=== PATIENT | male | born 1940 | race Caucasian/White ===

== ENCOUNTER 2017-03-11 18:56 | Inpatient (IN) | payer MEDICARE ==
[~2017-03-11] VITALS: Ht 182.8 cm; Wt 93.2 kg
--- NOTE | ~2017-03-11 | CON ---
[place], [place] REPORT OF CONSULTATION [id number] UNIT #: [id number] ROOM: 424 DOCTOR: KARL GALVAN MDGERARDO BIRTHDATE: [birth year] DOS: 03/15/2017 PULMONARY CONSULTATION EVALUATION AND MANAGEMENT CONSULTATION REQUESTED BY: Dr. Charity Wesley. REASON FOR CONSULTATION: Assess the patient with lactic acidosis as well as the current ongoing exacerbation of COPD. HISTORY OF PRESENT ILLNESS: An 76-year-old white male, who has been admitted to the hospital under care of Dr. Wesley on 03/11/2017. The patient reported with symptoms of having shortness of breath ongoing for about 3-4 days with gradual worsening. The symptoms were associated with cough, which has been noted productive, ongoing for several weeks, but the symptoms of the cough started after cold-like symptoms reported by the patient. The cough was noted later on, nonproductive. The patient was also complaining of symptoms of tightness in the chest and wheezing. He has been admitted to the hospital. The patient on 03/11/2017 noted with acute exacerbation of COPD and been managed for this patient with IV Solu-Medrol, bronchodilators and other treatment. The patient reported progressive reduction and resolution of the acute symptom for this patient in the last 4 days of management. The patient reported his symptoms have improved by 90% or greater since hospitalization. He has a lactic acid, which was done for the patient on admission, which has continued to be monitored for this patient and noted variable elevation with lactic acid different time. He has been given several inter-fluid boluses or other continuation of the IV fluid, but the lactic acid has never been normalized. The lactic acid on admission was recorded as 3.2 and high lactic acid more than 5. REVIEW OF SYSTEMS: CONSTITUTIONAL: Fatigue and tiredness reported and symptoms of fever or chills. EYES: Denies any burning, redness, or tenderness. EARS, NOSE, THROAT SYMPTOMS: No sore throat, hoarseness, otalgia, postnasal drainage or epistaxis. CARDIOVASCULAR: Denies angina pain, edema, or pain of the lower extremity. GASTROINTESTINAL: Denies dysphagia, nausea, vomiting, diarrhea, abdominal pain, hematemesis, melena, or hematochezia. SKIN: Denies lesions or rashes. MUSCULOSKELETAL: Acute joint pain, redness, or tenderness. SKIN: No lesions or rashes. CENTRAL NERVOUS SYSTEM: No dizziness, headache, diplopia, syncopal episode, or seizure activity. Remaining systems were reviewed with the patient, they were noted all negative. PAST MEDICAL HISTORY: Noted with history of: 1. COPD. 2. History of gout. 3. Coronary artery disease with past myocardial infarction. 4. History of stroke with complete neurologic recovery. 5. Hyperlipidemia. [place], [place] REPORT OF CONSULTATION NAME: IRINA STANLEY UNIT #: [id number] ROOM: [facility] DOCTOR: KARL GALVAN MD,[facility] BIRTHDATE: [birth year] 6. Essential hypertension. 7. Hypothyroidism. 8. History of pulmonary nodule. The details were not known by the patient. 9. History reported for congestive heart failure for this patient with possible diastolic dysfunction. SOCIAL HISTORY: The patient is and lives at home. His spouse was present in the room, has four children, 2 of the kids have . History of tobacco use was noted for this patient as about 3 packs of cigarettes per day, which was discontinued for the patient in year 1999. He had worked in construction for several years. Denies history of chronic alcohol use or dependence. Denies history of illicit drug use. FAMILY HISTORY: Father at 42 years old from gunshot wound. Mother at the age of 8080 years old, complication related to leukemia. HOME MEDICATIONS: Reported as Coreg and lisinopril. DRUG ALLERGIES: Noted for no known drug allergies. PHYSICAL EXAMINATION: GENERAL: An 76-year-old white male, who has been currently noted to be awake and alert without any acute distress. Height of 6 feet, weight of 199 pounds, BMI 27 on admission. VITAL SIGNS: Normal temperature reported for the patient throughout the hospitalization, respiratory rate ranges between 17 to 20, and heart rate of 93 to 107. The blood pressure noticed highest of 191/92 and this morning was 141/71. Pulse oxygen saturation was noted normal. Room air has 96% saturation to 98% saturation. HEENT: Examination shows head was atraumatic. Eyes nonicterus. NECK: Supple and mild to moderate obesity. Decreased posterior pharyngeal space, high tongue base crowding the soft tissue structures. LUNGS: Noted clear of any wheezing or crackles at the present time. ABDOMEN: Noted mild to moderate obesity. Bowel sounds present. CENTRAL NERVOUS SYSTEM: Nonfocal. Cranial nerves 2-12 intact. EXTREMITIES: Without any acute edema. SKIN: No lesions. MUSCULOSKELETAL: No deformities. LABORATORY DATA: CBC of 03/11 on admission, WBC count 12.5, hemoglobin of 17.4, hematocrit 52.6, platelet count of 148,000. Lactic acid 4.4 on admission. The CMP of the patient on 03/11, glucose 105, BUN and creatinine was normal. Troponin was normal. Lactic acid 4.4. CBC on 03/13 was noted WBC count 15.7, normal CBC noted after that. Blood culture on 03/12 admission, no bacterial growth reported. Final culture results were pending. BMP of 03/14, glucose 170. Remaining BMP completely normal. Review of the radiology data for the patient, pertinent to the lungs for this patient. Chest x-ray of 03/11 for this patient was noted without any acute pulmonary infiltration or other abnormalities. The chest x-ray of patient shows basilar areas of atelectasis with COPD and hyperinflation changes. [place], [place] REPORT OF CONSULTATION NAME: IRINA STANLEY UNIT #: [id number] ROOM: 424 DOCTOR[facility] BIR[facility]: [birth year] IMPRESSION: 1. The patient who has been currently admitted to the hospital, has responded very well to the acute exacerbation of chronic obstructive pulmonary disease with acute bronchitis management. 2. Basilar area of atelectasis, most likely secondary to mucus impaction. 3. Lactic acidosis. The patient has been noted variably elevated. The patient most likely related to the use of the bronchodilator for this patient given every 4 hours. The patient for the medical and COPD has been reported in the literature as there has not been any drugs noted. The patient with liver dysfunction or sepsis, which has been explaining the lactic acidosis. The patient noted completely asymptomatic, not showing any signs and symptoms related to the type A or type B lactic acidosis. 4. Chronic obesity. 5. Evidence of polycythemia noted on admission, suggestive of possibility of chronic hypoxia either resulting from the chronic obstructive pulmonary disease for this patient or nocturnal hypoxia, resulting for diagnosis of obstructive sleep apnea disorder should be considered as well. PLAN OF MANAGEMENT: I will discontinue doing further lactic acid assessment at this time. Discontinuation of the short acting bronchodilators frequently administered in the form of the nebulizer. If necessary, the patient could be discharged home from the pulmonary standpoint. The patient would be encouraged about office followup for further assessment and possibility of obstructive sleep apnea disorder as well. The patient would be encouraged about continued abstinence from the tobacco use. Usual care, supportive therapy, plan of management. The case was discussed with the medical assistant prn, Dr. Mendez, who is working with Dr. Charity Wesley about that. Agree with the discharge planning, a tapering dose of prednisone. Use of the bronchodilator could be used in the form of the MDI for this patient such as albuterol sulfate for the patient p.r.n. use rather than use of any nebulized medication tapering dose of prednisone could be also completed. The patient has not been noted on any long-term management of COPD medication, should be considered about use of long-term medical management of the COPD with medication such as anticholinergic agents or others. Again, the severity of the COPD was unknown. Basilar area of atelectasis should resolve for the patient with symptomatic management with use of expectorants. Thanks for allowing me to participate in the care of this patient. [place], [place] REPORT OF CONSULTATION NAME: IRINA STANLEY UNIT #: [id number] ROOM: 424 DOCTOR: GERARDO CHONG MD BIRTHDATE: [birth year] GERARDO BARAJAS MD CM:CONSTR:REPORT OF CONSULTATION 1321 03/15/17 1652 interface
[~2017-03-11 18:56] MED LIST: ALLOPURINOL300 MG PO; ASPIRIN EC325 MG PO; COREG6.25 MG PO; CYCLOBENZAPRINE10 MG PO; LEVAQUIN500 M2 PO; MEVACOR20 MG PO; NITROGLYCERIN0.4 MG SL; NORCO 10-325 T1 EACH PO; NORCO 5-325 TA1 EACH PO; PEPCID20 MG PO; PREDNICOT10 MG PO; SYNTHROID,LEV100 MCG PO; TYLENOL EXTRA500 M2 PO; VIBRAMYCIN100 MG PO; ZESTRIL,PRINIVIL5 MG PO
[2017-03-11 19:06] VITALS: BP 168/70
--- NOTE | 2017-03-11 19:32 | NUR ---
PT C/O SHARP RIGHT BACK PAIN BELOW SHOULDER BLADE RATED 9/10 INTERMITTENT AND NONRADIATING. ARLETH DIETRICH NOTIFIED.
[2017-03-11 19:53] LABS: BASO % 0.3 % (0.0-1.0); EOS # 0.1 10*3/uL (0.0-0.4); EOS % 0.5 % (1.0-4.0); HEMATOCRIT 52.6 % (42.0-52.0); HEMOGLOBIN 17.4 g/dl (14.0-18.0); LYMPH # 1.3 10*3/uL (1.3-4.4); LYMPH % 10.8 % (27.0-41.0); MEAN CORPUSCULAR HGB 29.4 pg (27.0-31.0); MEAN CORPUSCULAR HGB CONC 33.1 g/dl (33.0-37.0); MEAN PLATELET VOLUME 8.7 fl (9.6-12.3); MONO # 0.8 10*3/uL (0.1-1.0); MONO % 6.2 % (3.0-9.0); NEUT # 10.1 10*3/uL (2.3-7.9); NEUT % 81.9 % (47.0-73.0); PLATELET COUNT AUTOMATED 148 10*3/uL (130-400); RED BLOOD COUNT 5.91 10*6/uL (4.50-5.90); RED CELL DISTRI WIDTH 13.2 % (0-14.5); WHITE BLOOD COUNT 12.4 10*3/uL (4.8-10.8)
[2017-03-11 20:04] LABS: ACT PARTIAL THROMBO TIME 27.1 SECONDS (20.8-31.5)
--- NOTE | 2017-03-11 20:07 | NUR ---
CRITICAL LAB REPORTED TO ARLETH DIETRICH NP.
[2017-03-11 20:10] LABS: ALBUMIN 3.6 gm/dl (3.1-4.5); ALKALINE PHOSPHATASE 66 U/L (45-117); BUN 9 mg/dl (7-24); CHLORIDE 100 mmol/L (98-107); CREATININE 1.15 mg/dL (0.70-1.30); LIPASE 83 U/L (73-393); POTASSIUM 4.3 mmol/L (3.5-5.1); SGOT/AST 17 IU/L (3-35); SGPT/ALT 25 U/L (12-78); SODIUM 137 mmol/L (136-145); TOTAL PROTEIN 7.3 gm/dL (6.4-8.2)
[2017-03-11 20:12] LABS: TROPONIN I < 0.015 ng/ml (<0.045)
--- NOTE | 2017-03-11 20:15 | NUR ---
ATTEMPTED TO GIVE NURSE TO NURSE REPORT. NURSE AT [facility] UNAVAILABLE AT THIS TIME. GAVE NUMBER TO CALL BACK.
--- NOTE | 2017-03-11 20:19 | NUR ---
PT STATES HE IS NOT FEELING SOB AFTER RECIEVING STEROID. NO DISTRESS NOTED. RESPIRATIONS EASY AND NONLABORED.
[2017-03-11 20:29] VITALS: BP 125/76
[2017-03-11 21:19] VITALS: BP 154/77
[2017-03-11 21:49] LABS: BILIRUBIN NEGATIVE (NEGATIVE); BLOOD NEGATIVE (NEGATIVE); CLARITY CLEAR (CLEAR); COLOR YELLOW (YELLOW); GLUCOSE NEGATIVE (NEGATIVE); KETONE TRACE (NEGATIVE); LEUKO ESTERASE NEGATIVE (NEGATIVE); NITRITE NEGATIVE (NEGATIVE)
[2017-03-11 21:59] LABS: BACTERIA TRACE; RBC 0-2 rbc/hpf (0-2); WBC 0-2 wbc/hpf (0-5)
[2017-03-11 23:45] VITALS: BP 136/77
[2017-03-12 00:10] VITALS: BP 140/81
--- NOTE | 2017-03-12 00:10 | NUR ---
A 76, admitted to 4E, under the services of ISAIAH Arriaza MD with a diagnosis of COPD. Chief complaint is SOB. Patient arrived via bed from ER. Monitor applied. Initial assessment completed. Vital signs taken and recorded. ISAIAH ARRIAZA MD notified of admission to the unit. Orders received. See assessment for past medical history, medications and allergies. Patient and/or family oriented to unit. visitation policy reviewed. Clothing/patient valuable form completed. MARSHA COLBERT
--- NOTE | 2017-03-12 00:28 | NUR ---
MED REC UP TO DATE PER PATIENT.
--- NOTE | 2017-03-12 00:45 | NUR ---
NOTIFIED OF PTS. CRITICAL HIGH LACTIC ACID 3.6 AT THIS TIME, ATTEMPTED TO CALL AND NOTIFY DR. BECK AT THIS TIME. NO ANSWER, WILL WAIT 1 MINUTE AND ATTEMPT TO CALL HIS HOME PHONE PER THE [employer].
--- NOTE | 2017-03-12 00:48 | NUR ---
ATTEMPTED TO CALL DR. BECK'S HOME PHONE AT THIS TIME. HOME PHONE BUSY AT THIS TIME. WILL ATTEMPT TO RECALL CELL.
--- NOTE | 2017-03-12 01:00 | NUR ---
ATTEMPTED TO CALL DR. BECK'S HOME AND CELL AT THIS TIME AGAIN. NO ANSWER AT THIS TIME.
--- NOTE | 2017-03-12 01:10 | NUR ---
SPOKE WITH DR. MCFARLAND AT THIS TIME REGARDING PTS. STATUS AND CRITICAL LAB VALUE. ORDERS RECEIVED AT THIS TIME.
--- NOTE | 2017-03-12 07:26 | NUR ---
24 HR chart check completed.
[2017-03-12 08:00] VITALS: BP 137/76
--- NOTE | 2017-03-12 08:30 | NUR ---
Licensing Representative in to talk to patient. Patient states lives at HOME with HIS . There are 4 OUTSIDE STEPS steps in the home. Physician: DR BECK [facility] Patient's level of ADLs: INDEPENDENT Patient has working utilities: YES DME: NONE Follow-up physician's appointment after d/c: PREFERS TO MAKE HIS OWN APPT Does patient want to access PORTAL?: Discharge plan HOME. NOAH CARIAS
[2017-03-12 12:00] VITALS: BP 108/52
[2017-03-12 16:00] VITALS: BP 109/65
--- NOTE | 2017-03-12 19:50 | NUR ---
PT. AWAKE, ALERT AND ORIENTED X 3 AT THIS TIME. PT. IN BED AT THIS TIME WITH BREATHING TREATMENT ACTIVE. PT. DENIES SOB, CP, NVD AT THIS TIME. CALL LIGHT WITHIN REACH, BED IN LOWEST POSITION, WHEELS LOCKED. SEE SHIFT ASSESSMENT.
[2017-03-12 20:00] VITALS: BP 126/46
[2017-03-12 22:03] LABS: BILIRUBIN NEGATIVE (NEGATIVE); BLOOD NEGATIVE (NEGATIVE); CLARITY CLEAR (CLEAR); COLOR YELLOW (YELLOW); GLUCOSE NEGATIVE (NEGATIVE); KETONE 1+ (NEGATIVE); LEUKO ESTERASE NEGATIVE (NEGATIVE); NITRITE NEGATIVE (NEGATIVE); PH 5.5 (5.0-9.0); UROBILINOGEN 0.2 E.U./dl (0.2-1.0)
[2017-03-12 22:10] LABS: EPITHELIAL CELLS 0-2; WBC 0-2 wbc/hpf (0-5)
[2017-03-12 22:11] LABS: BACTERIA 1+
[2017-03-13] VITALS: BP 144/71
[2017-03-13 07:23] LABS: BASO % 0.1 % (0.0-1.0); LYMPH % 6.6 % (27.0-41.0); MEAN CORPUSCULAR HGB 29.1 pg (27.0-31.0); MEAN CORPUSCULAR HGB CONC 33.1 g/dl (33.0-37.0); MEAN PLATELET VOLUME 9.1 fl (9.6-12.3); MONO # 0.6 10*3/uL (0.1-1.0); MONO % 3.6 % (3.0-9.0); NEUT # 13.9 10*3/uL (2.3-7.9); NEUT % 88.8 % (47.0-73.0); PLATELET COUNT AUTOMATED 170 10*3/uL (130-400); RED BLOOD COUNT 5.25 10*6/uL (4.50-5.90); RED CELL DISTRI WIDTH 13.2 % (0-14.5); WHITE BLOOD COUNT 15.7 10*3/uL (4.8-10.8)
[2017-03-13 07:27] LABS: HEMATOCRIT 46.2 % (42.0-52.0); HEMOGLOBIN 15.3 g/dl (14.0-18.0)
[2017-03-13 08:00] VITALS: BP 128/65
[2017-03-13 08:12] LABS: CHLORIDE 98 mmol/L (98-107); POTASSIUM 4.3 mmol/L (3.5-5.1); SODIUM 136 mmol/L (136-145)
[2017-03-13 08:25] LABS: ALBUMIN 3.2 gm/dl (3.1-4.5); ALKALINE PHOSPHATASE 50 U/L (45-117); CHOLESTEROL 221 mg/dL (<200); CREATININE 1.16 mg/dL (0.70-1.30); HDL CHOLESTEROL 61 mg/dl (40-60); LDL CHOLESTEROL 139 mg/dL (9-159); PHOSPHOROUS 2.7 mg/dL (2.5-4.9); SGOT/AST 11 IU/L (3-35); SGPT/ALT 25 U/L (12-78); TOTAL PROTEIN 6.8 gm/dL (6.4-8.2); TRIGLYCERIDES 104 mg/dl (<150); VLDL CHOLESTEROL 21 mg/dL (6-40)
[2017-03-13 08:30] LABS: BUN 19 mg/dl (7-24)
[2017-03-13 09:57] LABS: VITAMIN D, 25-HYDROXY 9.1 ng/mL (30-100)
[2017-03-13 12:00] VITALS: BP 125/62
--- NOTE | 2017-03-13 12:28 | NUR ---
DR NÚÑEZ CALLED WITH A CRITICAL LACTIC ACID OF 3.7.
[2017-03-13 14:35] LABS: BASO % 0.1 % (0.0-1.0); HEMATOCRIT 46.1 % (42.0-52.0); HEMOGLOBIN 15.3 g/dl (14.0-18.0); LYMPH # 1.3 10*3/uL (1.3-4.4); LYMPH % 8.5 % (27.0-41.0); MEAN CORPUSCULAR HGB 29.5 pg (27.0-31.0); MEAN CORPUSCULAR HGB CONC 33.2 g/dl (33.0-37.0); MEAN PLATELET VOLUME 8.9 fl (9.6-12.3); MONO % 6.8 % (3.0-9.0); NEUT # 12.2 10*3/uL (2.3-7.9); NEUT % 83.6 % (47.0-73.0); PLATELET COUNT AUTOMATED 177 10*3/uL (130-400); RED BLOOD COUNT 5.18 10*6/uL (4.50-5.90); RED CELL DISTRI WIDTH 13.2 % (0-14.5); WHITE BLOOD COUNT 14.6 10*3/uL (4.8-10.8)
--- NOTE | 2017-03-13 14:45 | NUR ---
DR NÚÑEZ CALLED WITH CRITICAL LACTIC ACID OF 4.8.
[2017-03-13 16:00] VITALS: BP 131/68
--- NOTE | 2017-03-13 16:00 | NUR ---
DR NÚÑEZ CALLED WITH CRITICAL LACTIC ACID OF 3.7.
--- NOTE | 2017-03-13 17:17 | NUR ---
DR NÚÑEZ CALLED WITH CRITICAL LACTIC ACID OF 2.8.
--- NOTE | 2017-03-13 18:15 | NUR ---
CRITICAL LACTIC ACID OF 4.6.
--- NOTE | 2017-03-13 18:30 | NUR ---
IV TO LEFT AC INFILTRATED, DC'ED. NEW IV PLACED TO RIGHT FOREARM.
[2017-03-13 20:00] VITALS: BP 145/77
--- NOTE | 2017-03-13 20:00 | NUR ---
PT. AWAKE, ALERT AND ORIENTED X 3 AT THIS TIME. PT. DENIES CP, SOB, AND PAIN AT THIS TIME. CALL LIGHT WITHIN REACH, BED IN LOWEST POSITION, WHEELS LOCKED. SEE SHIFT ASSESSMENT.
--- NOTE | 2017-03-13 20:01 | NUR ---
NOTIFIED DR. ORTIZ OF PTS. CRITICAL LACTIC AT THIS TIME. NO NEW ORDERS AT THIS TIME.
--- NOTE | 2017-03-13 20:35 | NUR ---
NOTIFIED DR. ORTIZ OF PTS. CRITICAL LACTIC ACID AT THIS TIME. AWAITING PHYSICIAN ORDERS.
[2017-03-14] VITALS: BP 125/52
--- NOTE | 2017-03-14 00:07 | NUR ---
NOTIFIED DR. ORTIZ OF PTS. CRITICAL LACTIC ACID OF 3.8 AT THIS TIME. NO NEW ORDERS AT THIS TIME.
--- NOTE | 2017-03-14 02:19 | NUR ---
NOTIFIED DR. ORTIZ OF PTS. LACTIC ACID OF 3.2. NO NEW ORDERS AT THIS TIME.
[2017-03-14 04:03] VITALS: BP 122/58
[2017-03-14 04:24] LABS: BASO % 0.1 % (0.0-1.0); HEMATOCRIT 44.1 % (42.0-52.0); HEMOGLOBIN 14.6 g/dl (14.0-18.0); LYMPH # 0.9 10*3/uL (1.3-4.4); LYMPH % 7.9 % (27.0-41.0); MEAN CELL VOLUME 89.5 fl (80.0-94.0); MEAN CORPUSCULAR HGB 29.6 pg (27.0-31.0); MEAN CORPUSCULAR HGB CONC 33.1 g/dl (33.0-37.0); MEAN PLATELET VOLUME 9.5 fl (9.6-12.3); MONO # 0.3 10*3/uL (0.1-1.0); MONO % 2.7 % (3.0-9.0); NEUT # 10.3 10*3/uL (2.3-7.9); NEUT % 88.7 % (47.0-73.0); PLATELET COUNT AUTOMATED 165 10*3/uL (130-400); RED BLOOD COUNT 4.93 10*6/uL (4.50-5.90); RED CELL DISTRI WIDTH 13.3 % (0-14.5); WHITE BLOOD COUNT 11.6 10*3/uL (4.8-10.8)
--- NOTE | 2017-03-14 04:28 | NUR ---
NOTIFIED DR. ORTIZ OF PTS. CRITICAL LACTIC ACID AT THIS TIME. NO NEW ORDERS AT THIS TIME.
[2017-03-14 04:38] LABS: BUN 19 mg/dl (7-24); CHLORIDE 104 mmol/L (98-107); CREATININE 1.16 mg/dL (0.70-1.30); POTASSIUM 4.3 mmol/L (3.5-5.1); SODIUM 139 mmol/L (136-145)
[2017-03-14 08:00] VITALS: BP 157/89
--- NOTE | 2017-03-14 09:10 | NUR ---
PRN DULCOLAX GIVEN FOR CONSTIPATION. PT REPORTS HE OFTEN GOES 4-5 DAYS WITHOUT A STOOL.
[2017-03-14 12:00] VITALS: BP 123/71
--- NOTE | 2017-03-14 12:00 | NUR ---
CONSULT CALLED TO DR BARAJAS.
--- NOTE | 2017-03-14 12:00 | NUR ---
DR NÚÑEZ NOTIFIED THAT PT REFUSED TO HAVE ABG'S DRAWN.
--- NOTE | 2017-03-14 12:23 | NUR ---
DR BARAJAS CALLED UNIT, NOTIFIED OF CONSULT AND REFUSAL OF ABG.
--- NOTE | 2017-03-14 14:53 | NUR ---
NOTIFIED DR. NÚÑEZ OF CRITICAL LACTIC ACID OF 4.2. NOTIFIED HER THAT THE LAB STATED THAT RESULT WILL AUTOMATICALLY REFLUX FOR TWO MORE DRAWS. DR. NÚÑEZ WANTS TO MAKE SURE THAT THERE ARE 3 LACTIC ACIDS DRAWN AFTER THE ONE JUST CALLED TO HER.
[2017-03-14 16:00] VITALS: BP 153/96
--- NOTE | 2017-03-14 17:05 | NUR ---
MADE DR. NÚÑEZ AWARE OF CRITICAL LACTIC ACID OF 4.4. NO NEW ORDERS AT THIS TIME. AWARE LACTIC ACID X2 MORE TIMES ARE ORDERED. PATIENTS NURSE NONI AWARE OF RESULT WELL.
--- NOTE | 2017-03-14 19:08 | NUR ---
PATIENT HAS HAD CRITICAL LACTIC ACID RESULTS ALL DAY.07:22 =3.9, 09:20 =3.8, 11:30= 3.8, 14:34=4.2, 16:48= 4.4. DR NÚÑEZ CALLED WITH EACH CRITICAL LAB.
--- NOTE | 2017-03-14 19:14 | NUR ---
DR SEWELL CALLED TO REPORT CRITICAL LACTIC ACID OF 6.3.
--- NOTE | 2017-03-14 19:30 | NUR ---
DR. SEWELL NOTIFIED OF L.A RESULT OF 3.[address]CERNS FROM THE DR AT THIS TIME.
[2017-03-14 20:00] VITALS: BP 175/76
--- NOTE | 2017-03-14 23:34 | NUR ---
DR SEWELL CALLED AND NOTIFIED OF L.A OF 3.6. NO CONCERNS FROM THE DR AT THIS TIME.
[2017-03-15] VITALS: BP 178/82
--- NOTE | 2017-03-15 02:39 | NUR ---
PATIENT L.A 3.7. DR. SEWELL NOTIFIED.
--- NOTE | 2017-03-15 05:41 | NUR ---
CRITICAL LAB LA AT 4.1 DR. SEWELL NOTIFIED.
--- NOTE | 2017-03-15 07:56 | NUR ---
CRITICAL LACTIC ACID LAB CALLED ON PT, DR. NÚÑEZ NOTIFIED, NO NEW ORDERS AT THIS TIME.
[2017-03-15 08:00] VITALS: BP 191/92
--- NOTE | 2017-03-15 08:00 | NUR ---
IN TO SEE PT, ASSESSMENT COMPLETE, PT ALERT ORIENTED AND PLEASANT. NO S/S OF DISTRESS AT THIS TIME. RESPIRATIONS EASY AND UNLABORED. ALL NEEDS CURRENTLY MET, AM MEDICATIOSN TAKEN WITH EASE. IV SITE PATENT, DRESSING DRY AND IN TACT. FLUIDS RUNNING PER ORDER. ENCOURAGED USE OF CALL LIGHT.
[2017-03-15 09:41] VITALS: BP 140/68
--- NOTE | 2017-03-15 10:17 | NUR ---
CRITICAL LAB REPORTED ON PT, DR. NÚÑEZ NOTIFIED, NO NEW ORDERS AT THIS TIME.
[2017-03-15 12:00] VITALS: BP 141/71
[2017-03-15] MEDS ORDERED: VITAMIN D50000 UNIT PO (13:03)
[2017-03-15] MEDS ORDERED: B12,B-12,B 12500 MC1 PO (13:03)
[2017-03-15] MEDS ORDERED: DOXYCYCLINE100 M3 PO (13:04)
[2017-03-15] MEDS ORDERED: PREDNISONE10 MG PO (13:04)
--- NOTE | 2017-03-15 14:16 | NUR ---
Discharge instructions reviewed with patient/family. Patient receptive and verbalizes understanding. Follow-up care arranged. Written instructions given to patient/family. RICK JANG
== END 2017-03-15 14:16 | disposition home or self-care (01) | DRG 871 ==
LOC: ED 18:56 → EDHOLD 23:38 → 4E 23:38
PROVIDERS: Hospitalist; Nurse Practitioner Family; ADMIT Internal Medicine
DX: A41.9 Sepsis, unspecified organism (principal); J18.9 Pneumonia, unspecified organism; E87.2 Acidosis; I11.0 Hypertensive heart disease with heart failure; I50.9 Heart failure, unspecified; D75.1 Secondary polycythemia; J44.1 Chronic obstructive pulmonary disease with (acute) exacerbation; J44.0 Chronic obstructive pulmonary disease with (acute) lower respiratory infection; Z66 Do not resuscitate; R65.20 Severe sepsis without septic shock; G47.33 Obstructive sleep apnea (adult) (pediatric); J20.9 Acute bronchitis, unspecified; E66.9 Obesity, unspecified; R73.9 Hyperglycemia, unspecified; Z51.5 Encounter for palliative care; K21.9 Gastro-esophageal reflux disease without esophagitis; I25.10 Atherosclerotic heart disease of native coronary artery without angina pectoris; M10.9 Gout, unspecified; E78.5 Hyperlipidemia, unspecified; Z95.818 Presence of other cardiac implants and grafts; Z87.891 Personal history of nicotine dependence; Z82.3 Family history of stroke; Z83.3 Family history of diabetes mellitus; Z83.6 Family history of other diseases of the respiratory system; Z80.6 Family history of leukemia; Z79.899 Other long term (current) drug therapy; I25.2 Old myocardial infarction; Z86.73 Personal history of transient ischemic attack (TIA), and cerebral infarction without residual deficits; Z68.27 Body mass index [BMI] 27.0-27.9, adult

== ENCOUNTER 2017-05-23 08:44 | Inpatient (IN) | payer MEDICARE ==
[2017-05-23] VITALS (7 sets, daily range): BP systolic 120–182; BP diastolic 69–88
[~2017-05-23] VITALS: Ht 182.8 cm; Wt 86.2 kg
[~2017-05-23 08:44] MED LIST changes: +B12,B-12,B 12500 MC1 PO; +DOXYCYCLINE100 M3 PO; +PREDNISONE10 MG PO; +VITAMIN D50000 UNIT PO
[2017-05-23 09:19] LABS: BASO % 0.1 % (0.0-1.0); HEMATOCRIT 48.9 % (42.0-52.0); HEMOGLOBIN 16.4 g/dl (14.0-18.0); LYMPH # 1.1 10*3/uL (1.3-4.4); LYMPH % 14.2 % (27.0-41.0); MEAN CELL VOLUME 87.3 fl (80.0-94.0); MEAN CORPUSCULAR HGB 29.3 pg (27.0-31.0); MEAN CORPUSCULAR HGB CONC 33.5 g/dl (33.0-37.0); MEAN PLATELET VOLUME 8.8 fl (9.6-12.3); MONO # 0.6 10*3/uL (0.1-1.0); MONO % 7.4 % (3.0-9.0); NEUT # 5.9 10*3/uL (2.3-7.9); PLATELET COUNT AUTOMATED 155 10*3/uL (130-400); RED CELL DISTRI WIDTH 13.7 % (0-14.5); WHITE BLOOD COUNT 7.6 10*3/uL (4.8-10.8)
[2017-05-23 09:27] LABS: ACT PARTIAL THROMBO TIME 27.7 SECONDS (20.8-31.5); INTERNATIONAL NORM RATIO 0.9 (2.0-3.5)
[2017-05-23 09:34] LABS: ALBUMIN 3.2 gm/dl (3.1-4.5); ALKALINE PHOSPHATASE 47 U/L (45-117); BUN 19 mg/dl (7-24); CHLORIDE 95 mmol/L (98-107); POTASSIUM 3.9 mmol/L (3.5-5.1); SGOT/AST 13 IU/L (3-35); SGPT/ALT 16 U/L (12-78); SODIUM 136 mmol/L (136-145)
[2017-05-23 09:35] LABS: TROPONIN I < 0.015 ng/ml (<0.045)
[2017-05-23 09:36] LABS: ABG BASE EXCESS 4.7 mmol/L (-2.0-2.0); ABG HCO3 28.2 mmol/l (22-26); ABG O2 SATURATION 99.3 % (95-97); ARTERIAL BLOOD GAS PCO2 38.3 mmHg (35-45); ARTERIAL BLOOD GAS PH 7.478 (7.35-7.45)
[2017-05-23 12:34] LABS: ABG BASE EXCESS 4.1 mmol/L (-2.0-2.0); ABG HCO3 27.5 mmol/l (22-26); ABG O2 SATURATION 97.1 % (95-97); ARTERIAL BLOOD GAS PCO2 38.4 mmHg (35-45); ARTERIAL BLOOD GAS PH 7.469 (7.35-7.45); ARTERIAL BLOOD GAS PO2 85.6 mmHg (80-90)
[2017-05-23] MEDS ORDERED: ALBUTEROL2.5 MG/0.5 INH (14:12)
[2017-05-23 16:49] LABS: BILIRUBIN 1+ (NEGATIVE); BLOOD NEGATIVE (NEGATIVE); CLARITY SL CLOUDY (CLEAR); COLOR YELLOW (YELLOW); GLUCOSE NEGATIVE (NEGATIVE); KETONE 2+ (NEGATIVE); LEUKO ESTERASE NEGATIVE (NEGATIVE); NITRITE NEGATIVE (NEGATIVE); SPECIFIC GRAVITY 1.015 (1.005-1.030)
[2017-05-23 17:02] LABS: BACTERIA TRACE
[2017-05-24] VITALS: BP 115/65
[2017-05-24 04:00] VITALS: BP 153/66
[2017-05-24 05:22] LABS: HEMOGLOBIN 14.5 g/dl (14.0-18.0); LYMPH # 0.4 10*3/uL (1.3-4.4); LYMPH % 12.4 % (27.0-41.0); MEAN CELL VOLUME 87.7 fl (80.0-94.0); MEAN CORPUSCULAR HGB 29.8 pg (27.0-31.0); MEAN PLATELET VOLUME 8.8 fl (9.6-12.3); MONO # 0.2 10*3/uL (0.1-1.0); MONO % 4.6 % (3.0-9.0); NEUT # 2.9 10*3/uL (2.3-7.9); NEUT % 82.4 % (47.0-73.0); PLATELET COUNT AUTOMATED 143 10*3/uL (130-400); RED BLOOD COUNT 4.86 10*6/uL (4.50-5.90); RED CELL DISTRI WIDTH 13.2 % (0-14.5); WHITE BLOOD COUNT 3.5 10*3/uL (4.8-10.8)
[2017-05-24 05:25] LABS: HEMATOCRIT 42.6 % (42.0-52.0)
[2017-05-24 05:39] LABS: ALBUMIN 2.6 gm/dl (3.1-4.5); ALKALINE PHOSPHATASE 41 U/L (45-117); BUN 17 mg/dl (7-24); CHLORIDE 102 mmol/L (98-107); CREATININE 0.99 mg/dL (0.70-1.30); POTASSIUM 4.2 mmol/L (3.5-5.1); SGOT/AST 10 IU/L (3-35); SGPT/ALT 14 U/L (12-78); SODIUM 138 mmol/L (136-145); TOTAL PROTEIN 5.7 gm/dL (6.4-8.2)
[2017-05-24 08:00] VITALS: BP 185/84
[2017-05-24 12:00] VITALS: BP 184/77
[2017-05-24 16:00] VITALS: BP 136/68
[2017-05-24 20:00] VITALS: BP 136/50
[2017-05-25] VITALS: BP 156/81
[2017-05-25 06:43] LABS: BASO % 0.2 % (0.0-1.0); HEMATOCRIT 44.5 % (42.0-52.0); HEMOGLOBIN 14.5 g/dl (14.0-18.0); LYMPH # 0.7 10*3/uL (1.3-4.4); LYMPH % 12.6 % (27.0-41.0); MEAN CELL VOLUME 88.5 fl (80.0-94.0); MEAN CORPUSCULAR HGB 28.8 pg (27.0-31.0); MEAN CORPUSCULAR HGB CONC 32.6 g/dl (33.0-37.0); MEAN PLATELET VOLUME 8.9 fl (9.6-12.3); MONO # 0.2 10*3/uL (0.1-1.0); MONO % 3.9 % (3.0-9.0); NEUT # 4.7 10*3/uL (2.3-7.9); NEUT % 82.9 % (47.0-73.0); PLATELET COUNT AUTOMATED 161 10*3/uL (130-400); RED BLOOD COUNT 5.03 10*6/uL (4.50-5.90); WHITE BLOOD COUNT 5.7 10*3/uL (4.8-10.8)
[2017-05-25 07:18] LABS: ALBUMIN 2.7 gm/dl (3.1-4.5); ALKALINE PHOSPHATASE 42 U/L (45-117); BUN 19 mg/dl (7-24); CHLORIDE 105 mmol/L (98-107); CREATININE 1.16 mg/dL (0.70-1.30); SGOT/AST 14 IU/L (3-35); SGPT/ALT 21 U/L (12-78); SODIUM 142 mmol/L (136-145); TOTAL PROTEIN 5.8 gm/dL (6.4-8.2)
[2017-05-25 07:22] LABS: POTASSIUM 5.2 mmol/L (3.5-5.1)
[2017-05-25 08:00] VITALS: BP 156/67
[2017-05-25 12:00] VITALS: BP 154/70
[2017-05-25] MEDS ORDERED: TAMIFLU 75MG CA75 MG PO (13:30)
[2017-05-25] MEDS ORDERED: LEVOFLOXACIN500 MG PO (13:30)
== END 2017-05-25 15:02 | disposition home or self-care (01) | DRG 871 ==
LOC: ED 08:44 → 4E 09:45 → EDHOLD 09:45 → ICCU 09:45 → 4E 09:52 → ICCU 09:52 → 4E 10:10 → ICCU 12:42 → 5E 05-24 17:41
PROVIDERS: Emergency Medicine; Internal Medicine
DX: A41.9 Sepsis, unspecified organism (principal); J96.01 Acute respiratory failure with hypoxia; J44.1 Chronic obstructive pulmonary disease with (acute) exacerbation; J10.1 Influenza due to other identified influenza virus with other respiratory manifestations; I25.10 Atherosclerotic heart disease of native coronary artery without angina pectoris; I11.0 Hypertensive heart disease with heart failure; I50.9 Heart failure, unspecified; K21.9 Gastro-esophageal reflux disease without esophagitis; M10.9 Gout, unspecified; E78.5 Hyperlipidemia, unspecified; E03.9 Hypothyroidism, unspecified; G47.33 Obstructive sleep apnea (adult) (pediatric); Z87.891 Personal history of nicotine dependence; Z95.5 Presence of coronary angioplasty implant and graft; I25.2 Old myocardial infarction; Z86.73 Personal history of transient ischemic attack (TIA), and cerebral infarction without residual deficits; Z79.52 Long term (current) use of systemic steroids; Z79.899 Other long term (current) drug therapy; Z80.6 Family history of leukemia; Z83.3 Family history of diabetes mellitus; Z82.49 Family history of ischemic heart disease and other diseases of the circulatory system; Z83.6 Family history of other diseases of the respiratory system

== ENCOUNTER → 2018-01-17 | Outpatient (CLI) | payer MEDICARE ==
[~2018-01-17] MED LIST changes: +ALBUTEROL2.5 MG/0.5 INH; +LEVOFLOXACIN500 MG PO; +LEVOXYL112 MCG PO; +LOVASTATIN20 MG PO; +TAMIFLU 75MG CA75 MG PO; +VITAMIN B122500 MC1 PO
== END | disposition home or self-care (01) ==
LOC: CARD 01-16 09:30
DX: J44.1 Chronic obstructive pulmonary disease with (acute) exacerbation (principal); I10 Essential (primary) hypertension; Z87.891 Personal history of nicotine dependence

== ENCOUNTER 2018-07-23 14:19 | Inpatient (IN) | payer MEDICARE ==
[~2018-07-23] VITALS: Ht 182.8 cm; Wt 97.3 kg
--- NOTE | ~2018-07-23 | PR ---
[place], [place] PROGRESS NOTE NAME: IRINA STANLEY UNIT #: [id number] ROOM: 505 DOCTOR: SHU HERNANDEZ MD BIRTHDATE: [birth year] DOS: 07/25/2018 SUBJECTIVE: The patient was seen by Dr. Collins yesterday. The patient is comfortable, does not look to be in acute distress at this point. REVIEW OF SYSTEMS: A 6-8 systems reviewed as per HPI. OBJECTIVE: GENERAL: The patient is alert, oriented x 3. HEENT: Unremarkable. NECK: Supple. No JVD. LUNGS: Slightly tachypneic at rest and is on oxygen. Bilateral diminished air entry. CARDIOVASCULAR: Auscultation revealed distant heart sounds. No murmur. EXTREMITIES: About 2+ edema. NEUROLOGIC: Stable. LABORATORY DATA: Hemoglobin is 16.1 and hematocrit is 48.1. Electrolytes are normal. IMAGING DATA: CT of the chest revealed emphysematous changes, progression of patchy opacities in the left lower lobe, pneumonia, granulomatous process. IMPRESSION: The patient with probable pneumonia with shortness of breath and chronic obstructive pulmonary disease. RECOMMENDATIONS: Await the echo to be read by Dr. Collins. Continue the present care and we will follow up. SHU HERNANDEZ MD CM:PNTRANS [id number] SHU HERNANDEZ MD 07/25/18 0810 interface
--- NOTE | ~2018-07-23 | EKG ---
[place], [place] ELECTROCARDIOGRAM REPORT NAME: IRINA STANLEY UNIT #: [id number] ROOM: 505 DOCTOR: EPIPHANY DRAFT REPORT BIRTHDATE: [birth year] [facility] Test Date: 2018-07-23 Test Time: 15:58:46 Pat Name: IRINA STANLEY Department: Room: 505 2 Gender: M [employer] Production Manager: Ellie Terrazas : 1940 Requested By: ISAIAH BECK Order Number: [id number] Reading MD: Jazmyne Collins MD Measurements Intervals Harmony Rate: 70 P: 82 AK: 293 QRS: 55 QRSD: 151 T: 53 QT: 429 QTc: 463 Interpretive Statements Sinus rhythm Prolonged AK interval Right bundle branch block Baseline wander in lead(s) V1 No previous ECG available for comparison Electronically Signed On 07-26-2018 9:16:00 PDT by Jazmyne Collins MD CM:EKGRPT:ELECTROCARDIOGRAM REPORT [id number] ISAIAH BECK MD EPIPHANY DRAFT REPORT ISAIAH BECK MD
--- NOTE | ~2018-07-23 | CON ---
[place], [place] REPORT OF CONSULTATION NAME: [facility] [id number] UNIT #: [id number] ROOM: 505 DOCTOR: KARL GALVAN MDGERARDO BIRTHDATE: [birth year] DOS: 07/25/2018 PULMONARY CONSULTATION, EVALUATION AND MANAGEMENT REASON FOR CONSULTATION: Assess the patient with lung mass-like pulmonary nodule. HISTORY OF PRESENT ILLNESS: This is a 77-year-old white male patient, unknown to me, has been known with history of COPD and stated pulmonary nodule in the right upper lung in the past. He has been seen by Dr. Andino, his industrial engineering technologist in [place], [place]. He has been followed up with him. The patient has been admitted to the hospital. The patient was complaining of progressive increased shortness of breath ongoing for the past couple of months or more. Symptoms are also associated with some edema of the extremities. The patient denies symptoms of chest pain or hemoptysis. He has been assessed in the hospital after hospitalization on 07/23/2018, underwent ultrasound of the lower extremity, arterial Doppler of the lower extremities and CT scan of the chest completed yesterday. The patient denies symptoms of fever or chills. Denies any symptoms of hemoptysis. The cough of the patient was noted mostly nonproductive with wheezing at times. He does not use any oxygen supplementation at home and used some respiratory medications at home. REVIEW OF SYSTEMS: CONSTITUTIONAL: Fatigue and tiredness reported without any symptoms of fever or chills. EYES: Denies any burning, redness, or tenderness. EARS, NOSE, THROAT SYMPTOMS: Denies sore throat, hoarseness, otalgia, postnasal drainage or epistaxis. CARDIOVASCULAR SYSTEM: The patient noted the pain of the lower extremity with edema. Denies symptoms of anginal pain or palpitations. GASTROINTESTINAL SYMPTOMS: Denies dysphagia, nausea, vomiting, diarrhea, abdominal pain, hematemesis, melena or hematochezia. Abnormal weight loss. GENITOURINARY SYMPTOMS: No dysuria, urinary incontinence, hematuria or flank pain. MUSCULOSKELETAL: No acute joint pain, redness or tenderness. SKIN: Denies any abnormal lesions or rashes. CENTRAL NERVOUS SYSTEM: No dizziness, headache, diplopia or syncopal episodes. Remaining systems were reviewed, they were noted all negative. PAST MEDICAL HISTORY: Noted with: 1. History of hypothyroidism. 2. Essential hypertension. 3. Hyperlipidemia. 4. The patient with history of chronic obstructive pulmonary disease. 5. Intervertebral disk disease. 6. Past CVA, resolution of any focal neurologic deficit. PAST SURGICAL HISTORY: Noted: 1. Bilateral carotid endarterectomy. [place], [place] REPORT OF CONSULTATION NAME: IRINA STANLEY UNIT #: [id number] ROOM: [facility] DOCTOR: KARL GALVAN MD,GERARDO BIRTHDATE: [birth year] 2. Coronary artery bypass grafting. SOCIAL HISTORY: Stated the patient was noted tobacco use since teenager, smoked up to 3 to 4 packs of cigarettes per day, which was discontinued about the year 1999. He is , has 3 children, lives at home. FAMILY HISTORY: The patient noted noncontributory. CURRENT MEDICATIONS: Which has been administered for the patient this hospitalization is simvastatin, Flomax, allopurinol, IV Lasix 40 mg daily, levothyroxine, Coreg, IV Solu-Medrol 80 mg q. 8 hours, IV Rocephin, Zithromax and other p.r.n. meds. DRUG ALLERGIES: No known drug allergies. PHYSICAL EXAMINATION: GENERAL: A 77-year-old male patient who has been currently noted to be awake and alert without any acute distress, currently noted with significant shortness breath, this patient just walked from bathroom to his bed about 10 feet. Height is 6 feet, weight of 208 pounds, BMI 28.2. VITAL SIGNS: Normal temperature, respiratory rate 18-20, heart rate 84-77, blood pressure 125/54-158/74. Pulse oxygen saturation on room air was 99% saturation. HEENT: Head was atraumatic. Eyes nonicterus. NECK: Supple. Chronic obesity. CARDIOVASCULAR: S1, S2 is audible. LUNGS: The patient was noted without any crackles or wheezing. Breaths are noted essentially generalized decreased air entry in the lungs bilaterally. ABDOMEN: Soft, nontender. EXTREMITIES: Edema. MUSCULOSKELETAL: Without any acute deformities. CENTRAL NERVOUS SYSTEM: Intact. Cranial nerves 2-12 intact. LABORATORY DATA: CBC on 07/23/2018 for the patient noted as normal CBC. Lactic acid 1.8. CMP on 07/23/2018, normal BUN and creatinine on admission. Remaining CMP normal. BMP was normal. The BMP yesterday, normal BUN and creatinine. Ultrasound of bilateral lower extremity of the patient does not show any evidence of deep venous thrombosis. Chest x-ray, 2-view, which was done on 07/23/2018 for the patient shows a nodular opacity in the left lower lobe was clearly visible. CT scan of chest on 07/24/2018 was reviewed for this patient shows irregular spiculated nodule 1.7 x 1.1 cm. The patient noted in the right lower lobe which was not present on the previous CT scan comparison of 06/08/2016 would be considered a new finding. The patient was also noted with a density, which has noted more elliptical, horizontal in the lingular area as well. Possibly consolidation and other area of infiltration, irregular mass-like lesion noted in the left lower lobe as well. The patient was noted with severe emphysema changes, which appeared to be panlobular. IMPRESSION: 1. The patient who has been currently admitted in the hospital with progressive [place], [place] REPORT OF CONSULTATION NAME: IRINA STANLEY UNIT #: [id number] ROOM: [facility] [birth year] symptoms of increased shortness of breath related to acute exacerbation of chronic obstructive pulmonary disease, possibly congestive heart failure, mainly right-sided heart failure would be considered. 2. The patient with current irregular nodule and other finding for the patient suggestive of possibility of malignant process should be definitely excluded. Possibility of acute pneumonia and atelectasis of left lower lobe cannot be completely excluded. 3. Past history of nicotine abuse as well. 4. Significant muscle deconditioning as well. History of past nodule stated in the right upper lobe, but the details of that was not known by the patient clearly with some intervention was done for the patient by his industrial engineering technologist 9 years ago as stated by the patient. PLAN OF MANAGEMENT: At this time, the patient will be continued with management of the acute exacerbation of chronic obstructive pulmonary disease at this time, dose of Solu-Medrol certainly will be decreased to 40 mg q.8 hours. The patient has been requiring very high dose diuretic use. Follow the recommendation of assessment. Echocardiogram, especially right side to be assessed for the patient to rule out cor pulmonale. Bronchodilators administration as well would be continued. Oxygen supplementation in case of hypoxia. Empirical use of the antibiotic at this time until the infection is excluded. The patient already getting the antibiotics, Zithromax and Rocephin that will be continued. Sputum for Gram stain culture could be collected where the patient expectorates sputum as well. Other therapy, plan of management. Additional treatment changes will be ordered based on the progression of the illness. Also ordered the viral assessment with nasopharyngeal swab as well. Thanks for allowing me to participate in the care of this patient. GERARDO BARAJAS MD CM:CONSTR:REPORT OF CONSULTATION 1352 08/02/18 0820 interface
--- NOTE | ~2018-07-23 | PR ---
[place], [place] PROGRESS NOTE NAME: IRINA STANLEY UNIT #: [id number] ROOM: 505 DOCTOR: GERARDO CHONG MD BIRTHDATE: [birth year] DOS: 07/26/2018 PULMONARY PROGRESS NOTE SUBJECTIVE: The patient is noted comfortable at this time, resting on the bed. Shortness breath has been improving. Edema of the lower extremities is resolving. There are no symptoms of chest pain, fever, or chills. Mild cough is noted, without any sputum expectoration. OBJECTIVE: VITAL SIGNS: Normal temperature, respiratory rate 18, heart rate 77, blood pressure 122/80. Pulse oxygen saturation recorded as 96% saturation on room air. HEENT: Chronic obesity. Head is atraumatic. Eyes nonicterus. NECK: Supple. CARDIOVASCULAR: S1 and S2 audible. LUNGS: [id number] decreased breath sounds in the lungs bilaterally. ABDOMEN: Soft, nontender. EXTREMITIES: Mild edema. LABORATORY DATA: BMP this morning - BUN 23, creatinine normal. CBC this morning - WBC count 11.5. IMPRESSION: 1. Possibility of acute pneumonia with pulmonary nodule noted abnormal as well. 2. The patient with acute exacerbation of chronic obstructive pulmonary disease as well. 3. Congestive heart failure. PLAN OF MANAGEMENT: Decrease the Solu-Medrol dose to 40 mg daily dose at this time. Discharge planning per primary care attending. Outpatient assessment will be planned post-discharge as well for further assessment of pulmonary nodule and other pulmonary needs. [place], [place] PROGRESS NOTE NAME: IRINA STANLEY UNIT #: [id number] ROOM: 505 DOCTOR: GERARDO CHONG MD BIRTHDATE: [birth year] GERARDO BARAJAS MD CM:PNTRANS [id number] GERARDO GALVAN MD 07/27/18 0436 interface
--- NOTE | ~2018-07-23 | WRIGHTHP ---
[place], [place] PATIENT HISTORY AND PHYSICAL EXAM [id number] UN[facility] #: [id number] ROOM: 505 DOCTOR: ISAIAH BECK MD BIRTHDATE: [birth year] DOS: CHIEF COMPLAINT: 1. Swelling of the legs and bluish discoloration of the legs and pedal edema. 2. Shortness of breath. 3. Lasix not working for his swelling. HISTORY OF PRESENT ILLNESS: This is a 77-year-old gentleman with known history of COPD and coronary artery disease with ejection fraction of 55% in 2006. He has stage 4 COPD, presented to the office with bilateral 3 to 4+ pedal edema and progressive shortness of breath. His shortness of breath has been going on for 2 months and it is getting worse now. The patient has bluish discoloration of the toes, more on the right than the left and the patient getting more worse at night. Denied any nausea, vomiting or diarrhea. At this point, the patient was admitted to the hospital. PAST MEDICAL HISTORY: 1. Hypothyroidism. 2. Vitamin D deficiency. 3. End-stage chronic obstructive pulmonary disease with FEV1 of 26% on 01/11/2018. 4. Hypertension. 5. Hyperlipidemia. 6. Back pain and lumbar radiculopathy 7. CVA 10/1998, bilateral carotid endarterectomy done. 8. History of orthostatic hypotension. 9. The patient has coronary artery disease, has cardiac stent placed by Dr. Collins 3.5 x 9 mm in the mid RCA. 2D echo done in 2006 showed ejection fraction of 55%. EKG has a right bundle branch block pattern. 10. Former tobacco abuse, mild peripheral arterial disease. 11. Venous insufficiency of both lower extremities. 12. Benign prostate hyperplasia. 13. Gout. PAST SURGICAL HISTORY: Carotid endarterectomy 2001, stent in heart in RCA 2000. Incision and drainage of abscess in the axilla 2007. FAMILY HISTORY: Father at 41 years. Father of gunshot. Mother 85 years, of leukemia. Four brothers, four sisters, two sons, three daughters. Two brothers have . One had heart trouble and other alcoholic. Two brothers are alive and in fair health. Five sisters in fair health. Two daughters are , one with breast cancer and other with accident. One is in good health. SOCIAL HISTORY: No tobacco, no illicit drug use, no alcohol. ALLERGIES: LEVAQUIN AND LOSARTAN. POTASSIUM CAUSED COUGH. MEDICATIONS: Lamisil 250 mg daily, Lasix 20 mg daily, Flomax 0.4 mg daily, Advair 250/50 two puffs once a day, albuterol nebulizer solution, Spiriva 18 mcg [place], [place] PATIENT HISTORY AND PHYSICAL EXAM [facility]: [facility] [id number] UNIT #: [id number] ROOM: [facility] DOCTOR: ISAIAH BECK MD BIRTHDATE: [birth year] 1 inhalation once a day, allopurinol 300 mg daily, Synthroid 112 mcg daily, lovastatin 20 mg daily, Coreg 6.25 mg twice a day, Diovan 80 mg daily. REVIEW OF SYSTEMS: As in the history of presenting illness. Otherwise, 10-point review of system is negative. PHYSICAL EXAMINATION: VITAL SIGNS: Temperature 96.9, heart rate is 78, blood pressure 120/60, oxygen saturation is 100%. BMI 28.87. GENERAL: The patient is in mild distress. He is otherwise well-developed, well-nourished. HEAD: Head normocephalic, atraumatic. EYES: Pupils equal, round, react to light. Extraocular movements are intact. EARS: Tympanic membrane is dull on the right ear. Normal on the left ear. ORAL CAVITY: Mucosa is moist. Throat clear. NECK: No JVD, no lymphadenopathy, no thyromegaly. CHEST: Clinically diminished breath sounds bilaterally. HEART: S1, S2, regular rate and no murmur or gallop. ABDOMEN: Soft, nontender. EXTREMITIES: There is 3 to 4+ pedal edema noted with a bluish discoloration. NEUROLOGIC: He has brisk reflexes and is nonfocal. Motor strength normal in upper and lower extremities. ASSESSMENT AND PLAN: At this time: 1. Shortness of breath and progressively getting worse. The patient most likely has chronic obstructive pulmonary disease exacerbation. The patient will be given Rocephin 1 g daily, Zithromax 500 mg daily, DuoNeb q.4 hours and Solu-Medrol 80 mg t.i.d. 2. Coronary artery disease and possible diastolic heart failure. We will get 2D echo, cycle the cardiac enzymes and start patient on Lasix 40 mg IV daily. Patient already on beta blockers and statin and Diovan. 3. Possible cor pulmonale. 4. Hypothyroidism. We will continue Synthroid. Check TSH. 5. Hypertension, which is controlled at this time. 6. Discoloration of the foot, possible the patient has known peripheral arterial disease. We will check arterial Doppler of the lower extremities and also a venous ultrasound to rule out deep venous thrombosis. We will continue all home medications. 7. The patient will be on cardiac diet. Lovenox 40 mg subcutaneous daily for DVT prophylaxis and we will follow the patient in the mornings. CMP, CBC with diff, proBNP, chest x-ray, PA and lateral, EKG will be done. We will also get lactic acid. [place], [place] PATIENT HISTORY AND PHYSICAL EXAM NAME: IRINA STANLEY UNIT #: [id number] ROOM: [facility] DOCTOR: ISAIAH BECK MD BIRTHDATE: [birth year] ISAIAH BECK MD CM:HISPHYS:PATIENT HISTORY AND PHYSICAL EXAMINATION [id number] ISAIAH BECK MD 07/23/18 1547 interface
--- NOTE | ~2018-07-23 | CON ---
[place], [place] REPORT OF CONSULTATION [id number] UN[facility] #: [id number] ROOM: 505 DOCTOR: JOHN MENDOZA MD BIRTHDATE: [birth year] DOS: 07/24/2018 HISTORY OF PRESENT ILLNESS: This is a very pleasant 77-year-old -[place] man with a history of coronary artery disease and coronary stent deployed in 2000 at [facility]. Apparently, I did the procedure. He had a stent deployed in the right coronary artery. He also has significant COPD. For the last 3 months, he has had worsening shortness of breath and also had developed swelling in the legs, which is quite significant over the evening and it does improve when he wakes up in the morning. He has no PND or orthopnea, but has marked exertional shortness of breath, just walking a few yards in the house causes shortness of breath. He has had a cough with some expectoration, this is a chronic cough. He also had left anterior chest pain a couple of times in the last 2 days. It lasts for a very short time and occurred at rest while he was sitting. He has not had any palpitations, loss of consciousness. PAST MEDICAL AND SURGICAL HISTORY: Hypothyroidism; essential hypertension; hyperlipidemia; severe COPD, "previously documented end-stage;" chronic back pain; CVA in 1998. He had bilateral carotid endarterectomy around that time and coronary artery disease as mentioned above. He has BPH, gout and had quit smoking in 2000. HOME MEDICATIONS: Include albuterol aerosol treatments, Spiriva. He is on carvedilol 6.25 b.i.d., furosemide 20 daily, levothyroxine 112 mcg daily, lovastatin 20 daily, tamsulosin/Flomax 0.4 mg daily, and valsartan 80 mg daily. PHYSICAL EXAMINATION: GENERAL: This is a patient, who is tall, modestly overweight. He is very pleasant, alert. His complexion is fine. There is no cyanosis, jaundice, or pallor. The thyroid gland is not enlarged. He has a 3 cm cyst on the left side of the neck. VITAL SIGNS: Pulse is regular at 96 beats per minute, blood pressure 158/78. NECK: JVP is normal. AJR is negative. No bruit in the neck is appreciated. CARDIAC: Auscultation revealed distant heart sounds and no obvious murmurs. EXTREMITIES: Pedal pulses are easily appreciated. There is 2+ edema in the lower extremities, mostly around the ankles and feet, more so on the left side. Pedal pulses are easily palpable. RESPIRATORY SYSTEM: He is tachypneic at rest and on oxygen. There is some mild hyperresonance noted in the lower zones and breath sounds are severely diminished with some adventitious sounds. ABDOMEN: Bowel sounds are normal. No bruits are present. There is no organomegaly and is soft and nontender. LABORATORY AND DIAGNOSTIC DATA: An ECG showed normal sinus rhythm, first-degree heart block and right bundle branch block. Hemoglobin 16.1 g/dL. BUN 12, creatinine 1.26, potassium 4.3 and sodium 141. Troponin I less than 0.015. [place], [place] REPORT OF CONSULTATION NAME: IRINA STANLEY UNIT #: [id number] ROOM: 505 DOCTOR: JOHN MENDOZA MD BIRTHDATE: [birth year] IMPRESSION: 1. Coronary artery disease, status post remote coronary artery bypass grafting. I think left anterior chest pain a couple of times was noncardiac and it is not of much concern. 2. He has severe chronic obstructive pulmonary disease. 3. Edema in the lower extremities is present. This may be from right heart failure because of severe chronic obstructive pulmonary disease. I reviewed the chest x-ray and there was no evidence of pulmonary edema and COPD changes were apparent. RECOMMENDATIONS: I agree to get an echocardiogram on this gentleman and I would also recommend increasing the dose of Lasix to take care of edema, which is fairly significant. Hopefully, echocardiogram will be able to assess him for pulmonary hypertension. I thank you for this consult. JOHN MENDOZA MD CM:CONSTR:REPORT OF CONSULTATION 1152 07/25/18 0221 interface
--- NOTE | 2018-07-23 15:00 | NUR ---
PT ARRIVED TO THE FLOOR FOR ADMISSION. Time: 1500 A 77 year old MALE admitted to 5E under services of DR. KIRAN PERKINS,ISAIAH. Pt. arrived via wheel chair from [place]. Chief complaint: EDEMA BLE. LILIA HENAO
[2018-07-23 15:52] VITALS: BP 150/67
[2018-07-23 16:17] LABS: BASO % 0.5 % (0.0-1.0); EOS # 0.1 10*3/uL (0.0-0.4); EOS % 1.6 % (1.0-4.0); HEMATOCRIT 48.1 % (42.0-52.0); HEMOGLOBIN 16.1 g/dl (14.0-18.0); LYMPH # 1.6 10*3/uL (1.3-4.4); LYMPH % 29.6 % (27.0-41.0); MEAN CELL VOLUME 89.9 fl (80.0-94.0); MEAN CORPUSCULAR HGB 30.1 pg (27.0-31.0); MEAN CORPUSCULAR HGB CONC 33.5 g/dl (33.0-37.0); MEAN PLATELET VOLUME 9.1 fl (9.6-12.3); MONO # 0.6 10*3/uL (0.1-1.0); MONO % 10.8 % (3.0-9.0); NEUT # 3.2 10*3/uL (2.3-7.9); NEUT % 57.1 % (47.0-73.0); PLATELET COUNT AUTOMATED 167 10*3/uL (130-400); RED BLOOD COUNT 5.35 10*6/uL (4.50-5.90); RED CELL DISTRI WIDTH 13.5 % (0-14.5); WHITE BLOOD COUNT 5.5 10*3/uL (4.8-10.8)
[2018-07-23 16:35] LABS: ALBUMIN 3.3 gm/dl (3.1-4.5); ALKALINE PHOSPHATASE 55 U/L (45-117); BUN 12 mg/dl (7-24); CHLORIDE 106 mmol/L (98-107); CREATININE 1.09 mg/dL (0.70-1.30); POTASSIUM 3.9 mmol/L (3.5-5.1); SGOT/AST 20 IU/L (3-35); SGPT/ALT 28 U/L (12-78); SODIUM 140 mmol/L (136-145); TOTAL PROTEIN 6.9 gm/dL (6.4-8.2)
[2018-07-23 16:38] LABS: TROPONIN I < 0.015 ng/ml (<0.045)
--- NOTE | 2018-07-23 16:42 | NUR ---
DR. MENDOZA INFORMED OF CONSULT AND WILL SEE THE PATIENT TOMORROW.
[2018-07-23] MEDS ORDERED: FLOMAX0.4 MG PO (16:44)
[2018-07-23] MEDS ORDERED: LASIX20 MG PO (16:44)
[2018-07-23] MEDS ORDERED: ALLOPURINOL300 MG PO (16:48)
[2018-07-23] MEDS ORDERED: SYNTHROID,LEV112 MCG PO (16:50)
[2018-07-23] MEDS ORDERED: DIOVAN80 M1 PO (16:51)
[2018-07-23] MEDS ORDERED: SPIRIVA 5 CAPS18 MCG INH (16:54)
[2018-07-23 20:00] VITALS: BP 164/64
[2018-07-24] VITALS: BP 128/53
[2018-07-24 06:29] LABS: CHLORIDE 105 mmol/L (98-107); POTASSIUM 4.3 mmol/L (3.5-5.1); SODIUM 141 mmol/L (136-145)
[2018-07-24 06:39] LABS: BUN 12 mg/dl (7-24); CREATININE 1.26 mg/dL (0.70-1.30)
[2018-07-24 08:00] VITALS: BP 130/80
--- NOTE | 2018-07-24 11:11 | NUR ---
PT TAKEN OFF FLOOR FOR CT OF THE CHEST. HERE TO SEE THE PATIENT.
[2018-07-24 11:40] VITALS: BP 158/78
--- NOTE | 2018-07-24 11:40 | NUR ---
IN TO SEE PATIENT.
--- NOTE | 2018-07-24 12:56 | NUR ---
NOTIFIED REGARDING CRITICAL CT FINDINGS. NEW ORDERS RECEIVED.
--- NOTE | 2018-07-24 13:18 | NUR ---
NOTIFIED OF CONSULT.
--- NOTE | 2018-07-24 13:32 | NUR ---
Counter Hand in to talk to patient. Patient states lives at HOME with . There are FEW steps in the home. Physician: KIRAN Pharmacy:[facility] [place] [facility]: NONE Patient's level of ADLs: INDEPENDENT Patient has working utilities: YES DME: NONE Follow-up physician's appointment after d/c: PERFERS TO MAKE OWN APPOINTMENT AFTER DISCHARGE Does patient want to access PORTAL?: NO Discharge plan PT LIVES AT HOME WITH HIS AND IS INDEPENDENT IN HIS CARE. DENIES ANY HOME NEEDS AT THIS TIME. STATES HE PLANS TO RETURN HOME ON DISCHARGE. WILL CONTINUE TO FOLLOW. STATES HE WILL HAVE A RIDE HOME. . CARLOS EDUARDO VILLA
[2018-07-24 15:56] VITALS: BP 135/62
[2018-07-24 19:50] VITALS: BP 134/67
[2018-07-25] VITALS: BP 125/54
--- NOTE | 2018-07-25 07:49 | NUR ---
PATIENT RESTING QUIETLY IN BED. RESPIRATIONS EASY, REGULAR ON RA. DENIES ANY SOB AT REST. BREATHING IMPROVED PER PATIENT. BILATERAL SWELLING DECREASED TO BLLE. +1 PEDAL EDEMA. L>R. WILL CONTINUE TO MONITOR. VSS. CALL LIGHT WITHIN REACH.
[2018-07-25 08:00] VITALS: BP 150/58
--- NOTE | 2018-07-25 09:53 | NUR ---
ECHO BEING PERFORMED AT THE BEDSIDE.
[2018-07-25 12:00] VITALS: BP 161/80
--- NOTE | 2018-07-25 12:52 | NUR ---
PT CONTINUES TO DENY HOME NEEDS ON DISCHARAGE. WILL CONTINUE TO FOLLOW.
[2018-07-25 16:00] VITALS: BP 122/58
--- NOTE | 2018-07-25 16:00 | NUR ---
DULCOLAX SUPPOSITORY EFFECTIVE PER PT.
[2018-07-25 20:00] VITALS: BP 171/77
--- NOTE | 2018-07-25 20:38 | NUR ---
24 HR chart check completed.
--- NOTE | 2018-07-25 21:00 | NUR ---
RESTING IN BED WITH NO ACUTE DISTRESS NOTED. RESPIRATIONS EASY. LUNGS DIMINISHED WITH POOR AIR MOVEMENT. PULSE OX 100% RA. CLAIMS NON-PROD COUGH, AWARE OF NEED FOR SPUTUM SPECIMEN AND CUP PRESENT AT BEDSIDE. +1 PITTING BLE EDEMA L>R. CALL LIGHT WITHIN REACH. NO VOICED COMPLAINTS
[2018-07-26] VITALS: BP 160/62
--- NOTE | 2018-07-26 | NUR ---
SLEEPING. NO DISTRESS NOTED. RESPIRATIONS EASY. VSS. CALL LIGHT WITHIN REACH
--- NOTE | 2018-07-26 06:00 | NUR ---
SLEPT THROUGHOUT NIGHT WITH NO DISTRESS NOTED. RESPIRATIONS EASY. CALL LIGHT WITHIN REACH. NO VOICED COMPLAINTS THIS SHIFT
[2018-07-26 06:05] LABS: BASO % 0.1 % (0.0-1.0); HEMATOCRIT 44.6 % (42.0-52.0); HEMOGLOBIN 14.9 g/dl (14.0-18.0); LYMPH # 1.1 10*3/uL (1.3-4.4); MEAN CELL VOLUME 88.8 fl (80.0-94.0); MEAN CORPUSCULAR HGB 29.7 pg (27.0-31.0); MEAN CORPUSCULAR HGB CONC 33.4 g/dl (33.0-37.0); MEAN PLATELET VOLUME 9.1 fl (9.6-12.3); MONO # 0.3 10*3/uL (0.1-1.0); MONO % 2.7 % (3.0-9.0); NEUT # 9.9 10*3/uL (2.3-7.9); NEUT % 86.2 % (47.0-73.0); PLATELET COUNT AUTOMATED 183 10*3/uL (130-400); RED BLOOD COUNT 5.02 10*6/uL (4.50-5.90); RED CELL DISTRI WIDTH 13.5 % (0-14.5); WHITE BLOOD COUNT 11.5 10*3/uL (4.8-10.8)
[2018-07-26 06:27] LABS: BUN 23 mg/dl (7-24); CHLORIDE 107 mmol/L (98-107); CREATININE 1.12 mg/dL (0.70-1.30); POTASSIUM 3.9 mmol/L (3.5-5.1); SODIUM 141 mmol/L (136-145)
[2018-07-26 08:00] VITALS: BP 122/80
--- NOTE | 2018-07-26 09:02 | NUR ---
PT RESTING IN BED/ NO DISTRESS NOTED. NO VOICED C/O. AT BEDSIDE SEE SHIFT ASSESSMENT. WILL MONITOR
[2018-07-26] MEDS ORDERED: LASIX40 MG PO (12:12)
[2018-07-26] MEDS ORDERED: DOXYCYCLINE100 M3 PO (12:12)
[2018-07-26] MEDS ORDERED: PREDNISONE10 MG PO (12:12)
--- NOTE | 2018-07-26 13:50 | NUR ---
PT CONTINUES TO DENY HOME NEEDS. IN ROOM AND AGREES. WILL CONTINUE TO FOLLOW.
--- NOTE | 2018-07-26 14:39 | NUR ---
Discharge instructions reviewed with patient/family. Patient receptive and verbalizes understanding. Follow-up care arranged. Written instructions given to patient/family. GIOVANNY EID
[2018-07-28 00:02] LABS: ADENOVIRUS Negative (Negative); INFLUENZA A Negative (Negative); INFLUENZA B Negative (Negative); METAPNEUMOVIRUS Negative (Negative); PARAINFLUENZA 1 Negative (Negative); PARAINFLUENZA 2 Negative (Negative); PARAINFLUENZA 3 Negative (Negative); RHINOVIRUS Negative (Negative); RSV A Negative (Negative); RSV B Negative (Negative)
[2018-08-10] MEDS ORDERED: LEVOFLOXACIN500 MG PO (11:44)
[2018-08-10] MEDS ORDERED: PREDNISONE10 MG PO (11:44)
[2018-08-10] MEDS ORDERED: LASIX20 MG PO (12:01)
== END 2018-07-26 14:39 | disposition home or self-care (01) | DRG 291 ==
LOC: 5E 14:19
PROVIDERS: Internal Medicine Critical Care Medicine; Internal Medicine Nephrology; ADMIT Internal Medicine
DX: I11.0 Hypertensive heart disease with heart failure (principal); J18.9 Pneumonia, unspecified organism; J96.90 Respiratory failure, unspecified, unspecified whether with hypoxia or hypercapnia; J44.1 Chronic obstructive pulmonary disease with (acute) exacerbation; J44.0 Chronic obstructive pulmonary disease with (acute) lower respiratory infection; I50.33 Acute on chronic diastolic (congestive) heart failure; E03.9 Hypothyroidism, unspecified; E78.5 Hyperlipidemia, unspecified; M54.16 Radiculopathy, lumbar region; I73.9 Peripheral vascular disease, unspecified; N40.0 Benign prostatic hyperplasia without lower urinary tract symptoms; M10.9 Gout, unspecified; I25.10 Atherosclerotic heart disease of native coronary artery without angina pectoris; G89.29 Other chronic pain; E87.79 Other fluid overload; R91.8 Other nonspecific abnormal finding of lung field; Z95.5 Presence of coronary angioplasty implant and graft; Z80.8 Family history of malignant neoplasm of other organs or systems; Z81.1 Family history of alcohol abuse and dependence; Z86.73 Personal history of transient ischemic attack (TIA), and cerebral infarction without residual deficits; Z87.891 Personal history of nicotine dependence; Z88.1 Allergy status to other antibiotic agents

== ENCOUNTER → 2019-01-13 | Outpatient (CLI) | payer MEDICARE ==
[~2019-01-13] MED LIST changes: +DIOVAN80 M1 PO; +FLOMAX0.4 MG PO; +LASIX20 MG PO; +LASIX40 MG PO; +SPIRIVA 5 CAPS18 MCG INH; +SYNTHROID,LEV112 MCG PO
== END | disposition home or self-care (01) ==
LOC: CT 12:43
DX: J43.9 Emphysema, unspecified (principal); R91.1 Solitary pulmonary nodule; I25.10 Atherosclerotic heart disease of native coronary artery without angina pectoris; I10 Essential (primary) hypertension; F17.200 Nicotine dependence, unspecified, uncomplicated

== ENCOUNTER 2019-02-26 10:23 | Inpatient (IN) | payer MEDICARE ==
[~2019-02-26] VITALS: Ht 182.8 cm; Wt 97.7 kg
[2019-02-26 10:31] VITALS: BP 175/75
[2019-02-26 10:46] LABS: BASO % 0.2 % (0.0-1.0); EOS % 0.2 % (1.0-4.0); HEMATOCRIT 47.9 % (42.0-52.0); HEMOGLOBIN 15.5 g/dl (14.0-18.0); LYMPH # 0.9 10*3/uL (1.3-4.4); LYMPH % 5.1 % (27.0-41.0); MEAN CELL VOLUME 87.7 fl (80.0-94.0); MEAN CORPUSCULAR HGB 28.4 pg (27.0-31.0); MEAN CORPUSCULAR HGB CONC 32.4 g/dl (33.0-37.0); MEAN PLATELET VOLUME 9.3 fl (9.6-12.3); MONO # 1.2 10*3/uL (0.1-1.0); MONO % 7.1 % (3.0-9.0); NEUT # 14.9 10*3/uL (2.3-7.9); NEUT % 86.9 % (47.0-73.0); PLATELET COUNT AUTOMATED 173 10*3/uL (130-400); RED BLOOD COUNT 5.46 10*6/uL (4.50-5.90); RED CELL DISTRI WIDTH 14.9 % (0-14.5); WHITE BLOOD COUNT 17.1 10*3/uL (4.8-10.8)
[2019-02-26 11:07] LABS: ALBUMIN 3.3 gm/dl (3.1-4.5); ALKALINE PHOSPHATASE 45 U/L (45-117); BUN 16 mg/dl (7-24); CHLORIDE 102 mmol/L (98-107); CREATININE 1.51 mg/dL (0.70-1.30); POTASSIUM 4.3 mmol/L (3.5-5.1); SGOT/AST 14 IU/L (3-35); SGPT/ALT 24 U/L (12-78); SODIUM 135 mmol/L (136-145); TOTAL PROTEIN 6.9 gm/dL (6.4-8.2)
[2019-02-26 11:08] LABS: TROPONIN I < 0.015 ng/ml (<0.045)
[2019-02-26 11:19] VITALS: BP 115/61
--- NOTE | 2019-02-26 11:59 | NUR ---
BED ASSIGNED 412/1. INPATIENT FLOOR WILL NEED 10 MINUTES.
[2019-02-26 12:10] VITALS: BP 148/65
--- NOTE | 2019-02-26 12:10 | NUR ---
A 78, admitted to , under the services of ISAIAH Arriaza MD with a diagnosis of SEVERE SEPSIS,PNEUMONITIS,DEHYDRATION. Chief complaint is SOB. Patient arrived via stretcher from ER. Monitor applied. Initial assessment completed. Vital signs taken and recorded. ISAIAH ARRIAZA MD notified of admission to the unit. Orders received. See assessment for past medical history, medications and allergies. Patient and/or family oriented to unit. [facility] 4TH FLOOR visitation policy reviewed. Clothing/patient valuable form completed. DAT RODRIGUEZ
[2019-02-26 12:39] VITALS: BP 148/65
[2019-02-26] MEDS ORDERED: ESCITALOPRAM OX10 MG PO (12:46)
[2019-02-26] MEDS ORDERED: Ipratropium Brom3 ML INH (12:46)
[2019-02-26] MEDS ORDERED: LISINOPRIL5 MG PO (12:47)
--- NOTE | 2019-02-26 12:51 | NUR ---
NOTIFIED DR. ROBBINS PATIENT IS ON THE FLOOR. MED REC IS UP TO DATE PER PATIENT HOWEVER PATIENT STATES HE HASNT BEEN TAKING IS MEDICATIONS. PATIENT ALSO STATES HE WANTS NOTHING DONE IF HIS HEART WOULD STOP. DNR-CC PAPER WORK PRINTED OUT.
--- NOTE | 2019-02-26 13:36 | NUR ---
NOTIFIED DR. ROBBINS OF PATIENTS LACTIC ACID,5.8.
[2019-02-26 16:00] VITALS: BP 122/61
--- NOTE | 2019-02-26 16:00 | NUR ---
NOTIFIED DR. ROBBINS PATIENT NEEDS AN ADMIT TO ORDERED. STATED HE WOULD PUT IT IN.
[2019-02-26 20:00] VITALS: BP 131/73
[2019-02-26 22:30] LABS: BILIRUBIN NEGATIVE (NEGATIVE); BLOOD NEGATIVE (NEGATIVE); CLARITY CLEAR (CLEAR); COLOR YELLOW (YELLOW); GLUCOSE NEGATIVE (NEGATIVE); KETONE TRACE (NEGATIVE); LEUKO ESTERASE NEGATIVE (NEGATIVE); NITRITE NEGATIVE (NEGATIVE); SPECIFIC GRAVITY 1.025 (1.005-1.030); UROBILINOGEN 0.2 E.U./dl (0.2-1.0)
[2019-02-26 22:39] LABS: EPITHELIAL CELLS 0-2; MUCOUS TRACE; RBC 0-2 rbc/hpf (0-2); WBC 0-2 wbc/hpf (0-5)
--- NOTE | 2019-02-26 23:35 | NUR ---
DR. BECK CALLED TO REVIEW HOME MED LIST AND RESULTS OF CT SCAN. ORDERS RECEIVED.
[2019-02-27] VITALS: BP 128/79
[2019-02-27 05:35] LABS: HEMATOCRIT 45.4 % (42.0-52.0); HEMOGLOBIN 14.3 g/dl (14.0-18.0); MEAN CORPUSCULAR HGB 27.7 pg (27.0-31.0); MEAN CORPUSCULAR HGB CONC 31.5 g/dl (33.0-37.0); PLATELET COUNT AUTOMATED 168 10*3/uL (130-400); RED BLOOD COUNT 5.16 10*6/uL (4.50-5.90); RED CELL DISTRI WIDTH 14.8 % (0-14.5); WHITE BLOOD COUNT 10.8 10*3/uL (4.8-10.8)
[2019-02-27 05:52] LABS: ALBUMIN 2.8 gm/dl (3.1-4.5); ALKALINE PHOSPHATASE 41 U/L (45-117); BUN 14 mg/dl (7-24); CHLORIDE 107 mmol/L (98-107); CHOLESTEROL 150 mg/dL (<200); CREATININE 1.17 mg/dL (0.70-1.30); FREE T4 0.98 ng/dl (0.76-1.46); HDL CHOLESTEROL 50 mg/dl (40-60); LDL CHOLESTEROL 84 mg/dL (9-159); PHOSPHOROUS 1.3 mg/dL (2.5-4.9); POTASSIUM 4.3 mmol/L (3.5-5.1); SGOT/AST 10 IU/L (3-35); SGPT/ALT 20 U/L (12-78); SODIUM 139 mmol/L (136-145); TOTAL PROTEIN 6.1 gm/dL (6.4-8.2); TRIGLYCERIDES 79 mg/dl (<150); VLDL CHOLESTEROL 16 mg/dL (6-40)
[2019-02-27 05:58] LABS: ACT PARTIAL THROMBO TIME 33.9 SECONDS (20.0-32.1)
--- NOTE | 2019-02-27 06:00 | NUR ---
DR. SHARP NOTIFIED OF LACTIC ACID OF 3.1.
[2019-02-27 07:04] LABS: BURR CELLS FEW; OVALOCYTES FEW; PLATELET SUFFICIENCY NORMAL (NORMAL); POLYCHROMASIA SLIGHT; TOTAL CELLS COUNTED 100 #CELLS
[2019-02-27 08:25] VITALS: BP 148/62
[2019-02-27 08:33] LABS: VITAMIN D, 25-HYDROXY 8.8 ng/mL (30-100)
--- NOTE | 2019-02-27 10:38 | NUR ---
Spoke with Dr. Wesley regarding lactic acid level (see labs), patient request for something for axiety and constipation. See new orders.
[2019-02-27 12:00] VITALS: BP 149/66
[2019-02-27 16:00] VITALS: BP 122/58
--- NOTE | 2019-02-27 19:50 | NUR ---
PT COMPLAINING OF ANXIETY AND TREMORS. MEDICATED PER ORDER. WILL CONTINUE TO MONITOR FOR RELIEF. VOICES NO OTHER CONCERNS AT THIS TIME. RESTING IN BED. FAMILY AT BEDSIDE. CALL LIGHT WITHIN REACH.
[2019-02-27 20:00] VITALS: BP 153/66
--- NOTE | 2019-02-27 20:49 | NUR ---
PRN ATIVAN EFFECTIVE PER PT. RESTING IN BED. FAMILY IN ROOM. RESPS EASY AND NON LABORED. OXYGEN 2 L NASAL CANNULA INTACT. CALL LIGHT WITHIN REACH.
--- NOTE | 2019-02-27 21:16 | NUR ---
DR ROBBINS NOTIFIED OF PTS LACTIC ACID OF 2.2. NO NEW ORDERS AT THIS TIME.
[2019-02-28] VITALS: BP 132/52
--- NOTE | 2019-02-28 00:05 | NUR ---
24 HR chart check completed.
--- NOTE | 2019-02-28 02:31 | NUR ---
Patient resting quietly with no c/o discomfort. Respirations easy and regular. Vital signs stable. No overt distress. OXYGEN 3L VIA NC INTACT. CALL LIGHT WITHIN REACH HISSOM,KOMAL
--- NOTE | 2019-02-28 04:22 | NUR ---
Patient sleeping. Respirations relaxed and easy. [place] up . [place] on. NO S/S OF DISTRESS NOTED. OXYGEN 3L VIA NASAL CANNULA INTACT. CALL LIGHT WITHIN REACH HISSOM,KOMAL
[2019-02-28 08:16] VITALS: BP 130/80
[2019-02-28 12:00] VITALS: BP 136/71
[2019-02-28 16:00] VITALS: BP 140/66; BP 142/71
--- NOTE | 2019-02-28 19:00 | NUR ---
ASSUMED CARE FOR THIS PT AT THIS TIME. PT C/O INDIGESTION. PT'S RIGHT ELBOW SWOLLEN/TENDER/WARM. WILL NOTIFY MD. CALL LIGHT IN REACH.
[2019-02-28 20:00] VITALS: BP 182/84
--- NOTE | 2019-02-28 20:20 | NUR ---
DR. SHARP NOTIFIED OF PT'S C/O INDIGESTION AND REQUEST FOR TUMS. T.O. RCVD FOR TUMS 1000MG PO X1 NOW.
--- NOTE | 2019-02-28 20:49 | NUR ---
DR. SHARP NOTIFIED OF PT'S MANUAL BP OF 184/80 AND PT STATES HE TAKES COREG 6.5MG PO DAILY AT HOME. T.O. RCVD TO CONTINUE COREG AND RECHECK BP IN 1 HR.
[2019-02-28 22:00] VITALS: BP 175/75
--- NOTE | 2019-02-28 22:50 | NUR ---
PT MEDICATED W/ATIVAN FOR S/S OF ANXIETY.
[2019-03-01] VITALS (7 sets, daily range): BP systolic 130–190; BP diastolic 58–85
--- NOTE | 2019-03-01 00:30 | NUR ---
DR. SHARP MADE AWARE OF CRACKLES TO POSTERIOR BASES. ORDERED TO STOP FLUIDS FOR NOW.
--- NOTE | 2019-03-01 02:30 | NUR ---
PT REPORTED BM AT THIS TIME
[2019-03-01 06:44] LABS: BASO % 0.2 % (0.0-1.0); HEMATOCRIT 41.4 % (42.0-52.0); HEMOGLOBIN 13.2 g/dl (14.0-18.0); LYMPH # 0.6 10*3/uL (1.3-4.4); LYMPH % 6.8 % (27.0-41.0); MEAN CELL VOLUME 88.5 fl (80.0-94.0); MEAN CORPUSCULAR HGB 28.2 pg (27.0-31.0); MEAN CORPUSCULAR HGB CONC 31.9 g/dl (33.0-37.0); MEAN PLATELET VOLUME 9.1 fl (9.6-12.3); MONO # 0.2 10*3/uL (0.1-1.0); MONO % 2.3 % (3.0-9.0); NEUT # 7.9 10*3/uL (2.3-7.9); NEUT % 89.3 % (47.0-73.0); PLATELET COUNT AUTOMATED 189 10*3/uL (130-400); RED BLOOD COUNT 4.68 10*6/uL (4.50-5.90); WHITE BLOOD COUNT 8.9 10*3/uL (4.8-10.8)
[2019-03-01 07:06] LABS: BUN 20 mg/dl (7-24); CHLORIDE 109 mmol/L (98-107); CREATININE 1.09 mg/dL (0.70-1.30); PHOSPHOROUS 2.2 mg/dL (2.5-4.9); POTASSIUM 4.7 mmol/L (3.5-5.1); SODIUM 142 mmol/L (136-145)
--- NOTE | 2019-03-01 12:00 | NUR ---
PHYSICAL THERAPY PT EVAL COMPLETED TODAY: FULL EVAL TO FOLLOW. RECOMMEND PT WHILE HERE TO ADDRESS DECREASED STRENGTH, ENDURANCE AND BALANCE WELL FUNCTIONAL MOBILITY. PT EVAL IS MDOERAHARINDER COMPLEXITY : [id number]. D.C RECOMMENDATIONS ARE FOR HOME WITH HOME HEALTH. THANK YOU FOR REFERRAL TONY NOGUEIRA PT
--- NOTE | 2019-03-01 20:00 | NUR ---
PT IS REQUESTING SYMBICORT INHALER. PT STATES THAT BREATHING TREATMENTS ARE NOT EFFECTIVE FOR HIS SHORTNESS OF BREATH. DR BECK NOTIFIED AND ORDERS SYMBICORT WITH NO PHARMACOLOGIC SUBSTITUTION. PHARMACY NOTIIFIED AND STATES THAT THEY DO NOT CARRY INHALERS ANYMORE BUT THAT PATIENT CAN BRING INHALER FROM HOME TO BE LABELED FOR USE. PATIENT AND HIS FAMILY NOTIFIED OF THIS AND STATE THAT THEY WILL BRING INHALER IN THE MORNING. PT HAS NO DISTRESS AT THIS TIME. CALL LIGHT IN REACH.
[2019-03-01] MEDS ORDERED: SYMB160 INH (20:23)
--- NOTE | 2019-03-01 21:13 | NUR ---
PT GIVEN ATIVAN 0.5 MG PO AND TYLENOL AT THIS TIME FOR C/O ANXIETY AND HEADACHE. WILL MONITOR FOR EFFECTIVENESS. ALL NEEDS ARE MET AT THIS TIME. PT STATES THAT HE DOES NOT HAVE SHORTNESS OF BREATH AT REST. 3L NC IN TACT. RESPIRATIONS UNLABORED. WILL MONITOR. CALL LIGHT IN REACH.
--- NOTE | 2019-03-01 22:13 | NUR ---
PT STATES THAT PRN ATIVAN AND TYLENOL ARE EFFECTIVE AT THIS TIME.
[2019-03-02] VITALS: BP 136/61
--- NOTE | 2019-03-02 06:00 | NUR ---
PT GIVEN AM MEDICAITONS. TAKEN WITH EASE. NO S/S OF DISTRESS. RESPIRATIONS UNLABORED ON 3L NC. ALL SAFETY MEASURES IN PLACE. CALL LIGHT IN REACH.
[2019-03-02 08:00] VITALS: BP 144/76
--- NOTE | 2019-03-02 08:31 | NUR ---
24 HR chart check completed.
--- NOTE | 2019-03-02 10:38 | NUR ---
PT IV WORKING PT IS HARD STICK NO IV START AT THIS TIME
[2019-03-02 12:27] VITALS: BP 149/55
[2019-03-02 16:00] VITALS: BP 160/70; BP 180/74
--- NOTE | 2019-03-02 17:31 | NUR ---
SPOKE Glen BECK ABOUT PT BP 180/70 SAID TO GIVE 5MG LISINOPRIL PO NOW AND UP HIS LISINOPRIL TO 10MG DAILY PO
--- NOTE | 2019-03-02 17:47 | NUR ---
ATIVAN GIVEN PER PT REQUEST
--- NOTE | 2019-03-02 18:43 | NUR ---
F/U BP 160/70 [id number] 180/70 GAVE LISINOPRIL 5MG PO ONCE
[2019-03-02 20:00] VITALS: BP 185/72
[2019-03-03] VITALS: BP 148/65; BP 156/74
--- NOTE | 2019-03-03 00:14 | NUR ---
PT'S B/P MUCH BETTER AFTER NORCO AND COREG WERE GIVEN. PT. STATED NORCO EFFECTIVE FOR PAIN. RESTING COMFORTABLY AT PRESENT.
[2019-03-03 06:26] LABS: HEMATOCRIT 43.7 % (42.0-52.0); HEMOGLOBIN 13.9 g/dl (14.0-18.0); MEAN CELL VOLUME 87.4 fl (80.0-94.0); MEAN CORPUSCULAR HGB 27.8 pg (27.0-31.0); MEAN CORPUSCULAR HGB CONC 31.8 g/dl (33.0-37.0); MEAN PLATELET VOLUME 9.1 fl (9.6-12.3); NUCLEATED RED BLOOD CELL 0.2 % (0.0-0.0); PLATELET COUNT AUTOMATED 181 10*3/uL (130-400); RED CELL DISTRI WIDTH 14.4 % (0-14.5); WHITE BLOOD COUNT 8.2 10*3/uL (4.8-10.8)
[2019-03-03 06:35] LABS: BUN 21 mg/dl (7-24); CHLORIDE 104 mmol/L (98-107); CREATININE 1.13 mg/dL (0.70-1.30); PHOSPHOROUS 2.6 mg/dL (2.5-4.9); POTASSIUM 4.6 mmol/L (3.5-5.1); SODIUM 139 mmol/L (136-145)
[2019-03-03 06:47] LABS: OVALOCYTES FEW; PLATELET SUFFICIENCY NORMAL (NORMAL); POLYCHROMASIA SLIGHT; TOTAL CELLS COUNTED 100 #CELLS
[2019-03-03 07:55] VITALS: BP 170/90
--- NOTE | 2019-03-03 08:00 | NUR ---
PATIENT IS RESTING COMFORTABLY IN BED, NO C/O OF PAIN. GERSON LEHMAN [facility]
--- NOTE | 2019-03-03 08:21 | NUR ---
PATIENT UP AND RESTING COMFORTABLY IN BED, NO C/O OF PAIN. GERSON LEHMAN [facility]
--- NOTE | 2019-03-03 09:00 | NUR ---
Health And Social Care Teacher in to talk to patient. Patient states lives at home with his granddaughter as his in December. There are 10 steps in the home. There is a wheelchair ramp. Physician: Dr. Artie Wesley Pharmacy: [facility] Home health services: none Patient's level of ADLs: INDEPENDENT Patient has working utilities: yes DME: nebulizer, O2 @ 3L nc, portable O2 tanks, O2 supplier HCS, wheelchair Follow-up physician's appointment after d/c: he prefers to make his own follow up appt after discharge Does patient want to access PORTAL?: no Discharge plan discussed with patient. He lives at home with his granddaughter as his in December. He is independent in his ADLS and ambulation. Discussed home health care services and he denies any home needs at this time. When medically stable he will be discharged to home. His daughter will provide transportation on discharge. He was diagnosed with lung cancer in September and doesn't want treatment. Being treated with rocephin, zithromax, and levaquin for pneumonia. Treating COPD with solumedrol. ALEXANDRE BASS
--- NOTE | 2019-03-03 09:21 | NUR ---
ATIVAN PER PT REQUEST
--- NOTE | 2019-03-03 10:00 | NUR ---
PATIENT RESTING IN BED, NO VOICED COMPLAINTS AT THIS TIME SHANE MARTINEZCC
--- NOTE | 2019-03-03 10:00 | NUR ---
PT CONTINUES TO LAY IN BED, CURRENTLY REFUSING BATH, STATES SHE MAY GET CLEANED UP AFTER LUNCH. ANIYAH ZHU SPCC
--- NOTE | 2019-03-03 10:57 | NUR ---
RESTING QUIETLY AFTER PO ATIVAN
[2019-03-03 12:00] VITALS: BP 170/70
--- NOTE | 2019-03-03 12:00 | NUR ---
PT IS RESTING IN BED COMFORTABLY, NO COMPLAINTS AT THIS TIME Екатерина Maurer SPNRCC
--- NOTE | 2019-03-03 13:30 | NUR ---
PT EATING LUNCH NO COMPLAINTS AT THIS TIME TOÑA OLIVEIRA SPNRCC
--- NOTE | 2019-03-03 13:34 | NUR ---
IV INFILTRATED AND WAS RESARTED USING ULTRASOUND, PT ARMS ECCHYMOTIC FROM NUMEROUS IV STICKS SHANE BARAHONA SPNR[facility]
--- NOTE | 2019-03-03 13:36 | NUR ---
PATIENT RESTING COMFORTABLY IN BED, PLEASANT AND COOPERATIVE. [facility]
--- NOTE | 2019-03-03 13:55 | NUR ---
PHYSICAL THERAPY Patient was resting supine in bed with several family members visiting this afternoon when approached for therapy. Patient request to spend time with visitors and will continue per POC at a later time. Jono Zee, REAL ESTATE LISTING CONSULTANT
[2019-03-03 16:00] VITALS: BP 182/80
--- NOTE | 2019-03-03 17:54 | NUR ---
DR BARAJAS NOTIFIED OF CONSULT
--- NOTE | 2019-03-03 19:17 | NUR ---
24 HR chart check completed.
[2019-03-03 20:00] VITALS: BP 184/76
--- NOTE | 2019-03-03 21:00 | NUR ---
RESTING IN BED WITH NO ACUTE DISTRESS NOTED. RESPIRATIONS EASY. LUNGS DIMINISHED, CLEAR. PULSE OX 99% 3L, HUMIDIFICATION ADDED. CLAIMS INFREQUENT COUGH. ABD SOFT WITH HYPO BOWEL SOUNDS. +1 PITTING BLE EDEMA. CALL LIGHT WITHIN REACH. NO VOICED COMPLAINTS. FAMILY PRESENT AT BEDSIDE
--- NOTE | 2019-03-03 21:14 | NUR ---
C/O NO BM X 4 DAYS, MEDICATED WITH DULCOLAX PER PRN ORDER. WILL MONITOR
[2019-03-03] MEDS ORDERED: COLACE100 MG PO (21:25)
--- NOTE | 2019-03-03 21:35 | NUR ---
REQUESTED AND RECEIVED NORCO AND ATIVAN PER PRN ORDER FOR COMPLAINTS OF LOWER BACK PAIN RATING A 7 AND TO ASSIST WITH ANXIETY. CALL LIGHT WITHIN REACH. WILL MONITOR FOR EFFECTIVENESS
--- NOTE | 2019-03-03 23:00 | NUR ---
MEDS APPEAR EFFECTIVE. SLEEPING. RESPIRATIONS EASY. O2 IN USE. CALL LIGHT WITHIN REACH.
[2019-03-04] VITALS: BP 154/70
--- NOTE | 2019-03-04 00:30 | NUR ---
SLEEPING. NO DISTRESS NOTED. RESPIRATIONS EASY. VSS. CALL LIGHT WITHIN REACH.
--- NOTE | 2019-03-04 06:00 | NUR ---
SLEPT THROUGHOUT NIGHT WITH NO DISTRESS NOTED. RESPIRATIONS EASY. O2 IN USE. CALL LIGHT WITHIN REACH. NO VOICED COMPLAINTS THIS SHIFT
[2019-03-04 06:29] LABS: HEMATOCRIT 42.5 % (42.0-52.0); MEAN CELL VOLUME 85.9 fl (80.0-94.0); MEAN CORPUSCULAR HGB 28.3 pg (27.0-31.0); MEAN CORPUSCULAR HGB CONC 32.9 g/dl (33.0-37.0); MEAN PLATELET VOLUME 9.2 fl (9.6-12.3); PLATELET COUNT AUTOMATED 177 10*3/uL (130-400); RED BLOOD COUNT 4.95 10*6/uL (4.50-5.90); RED CELL DISTRI WIDTH 14.3 % (0-14.5)
[2019-03-04 06:50] LABS: BUN 20 mg/dl (7-24); CHLORIDE 104 mmol/L (98-107); POTASSIUM 4.5 mmol/L (3.5-5.1); SODIUM 137 mmol/L (136-145)
[2019-03-04 06:51] LABS: CREATININE 0.92 mg/dL (0.70-1.30); PHOSPHOROUS 2.2 mg/dL (2.5-4.9)
[2019-03-04 07:06] LABS: TOTAL CELLS COUNTED 100 #CELLS
[2019-03-04 07:07] LABS: PLATELET SUFFICIENCY NORMAL (NORMAL)
[2019-03-04 07:08] LABS: POLYCHROMASIA SLIGHT; TOXIC GRANULATION SLIGHT
[2019-03-04 08:00] VITALS: BP 183/75
--- NOTE | 2019-03-04 08:23 | NUR ---
Occupational Therapy evaluation offered this date. Patient in bed and denied need for Occupational Therapy despite c/o SOB w/ exertion. Patient reports that he is independent in self care and functional mobility at this time. Discharge OT referral per patient's request. Thank you. Norma Wang OTR/l
--- NOTE | 2019-03-04 08:35 | NUR ---
PHYSICAL THERAPY Patient was approached for therapy this AM. Patient declined therapy this morning ,saying he doesn't need therapy and is nauseated this morning. This CUSTOM WOOD STAIR BUILDER will check back later with patient. FREDDY MYRICK CUSTOM WOOD STAIR BUILDER
[2019-03-04 08:46] VITALS: BP 160/80
--- NOTE | 2019-03-04 09:00 | NUR ---
[employer] Dedicated [employer] Driver in to see patient. No new needs or request at this time. He denies any home needs. When medically stable he will be discharged to home. Awaiting Dr. Booker consultation, treating pneumonia with rocephin, zithromax, and levaquin, and treating COPD with solumedrol.
[2019-03-04] MEDS ORDERED: PREDNISONE10 MG PO (10:04)
--- NOTE | 2019-03-04 11:49 | NUR ---
PATIENT DISCHARGED TO HOME WITH BELONGINGS.
--- NOTE | 2019-03-06 07:49 | NUR ---
PHYSICAL THERAPY CO-SIGN I approve of the Physical Therapy notes written above. Karolyn Benjamin PT
== END 2019-03-04 11:49 | disposition home or self-care (01) | DRG 871 ==
LOC: ED 10:23 → EDHOLD 11:39 → 4E 11:39
PROVIDERS: Emergency Medicine; Internal Medicine; Internal Medicine Nephrology; ADMIT Internal Medicine
DX: A41.9 Sepsis, unspecified organism (principal); J18.9 Pneumonia, unspecified organism; N17.9 Acute kidney failure, unspecified; E87.1 Hypo-osmolality and hyponatremia; C34.31 Malignant neoplasm of lower lobe, right bronchus or lung; J96.10 Chronic respiratory failure, unspecified whether with hypoxia or hypercapnia; I13.0 Hypertensive heart and chronic kidney disease with heart failure and stage 1 through stage 4 chronic kidney disease, or unspecified chronic kidney disease; R65.20 Severe sepsis without septic shock; I50.9 Heart failure, unspecified; E86.9 Volume depletion, unspecified; J43.9 Emphysema, unspecified; D72.9 Disorder of white blood cells, unspecified; D72.810 Lymphocytopenia; D72.818 Other decreased white blood cell count; D72.821 Monocytosis (symptomatic); R73.9 Hyperglycemia, unspecified; G47.33 Obstructive sleep apnea (adult) (pediatric); E03.9 Hypothyroidism, unspecified; N18.3 Chronic kidney disease, stage 3 (moderate); E86.0 Dehydration; Z66 Do not resuscitate; G89.3 Neoplasm related pain (acute) (chronic); Z51.5 Encounter for palliative care; E78.2 Mixed hyperlipidemia; M1A.9XX0 Chronic gout, unspecified, without tophus (tophi); K21.9 Gastro-esophageal reflux disease without esophagitis; I25.10 Atherosclerotic heart disease of native coronary artery without angina pectoris; I73.9 Peripheral vascular disease, unspecified; E83.39 Other disorders of phosphorus metabolism; E78.00 Pure hypercholesterolemia, unspecified; T38.0X5A Adverse effect of glucocorticoids and synthetic analogues, initial encounter; Y92.89 Other specified places as the place of occurrence of the external cause; I25.2 Old myocardial infarction; Z86.73 Personal history of transient ischemic attack (TIA), and cerebral infarction without residual deficits; Z87.01 Personal history of pneumonia (recurrent); Z95.5 Presence of coronary angioplasty implant and graft; Z87.891 Personal history of nicotine dependence; Z80.6 Family history of leukemia; Z82.3 Family history of stroke; Z83.3 Family history of diabetes mellitus; Z82.5 Family history of asthma and other chronic lower respiratory diseases; Z99.81 Dependence on supplemental oxygen; Z79.899 Other long term (current) drug therapy